=== PATIENT | female | born 1940 | race Caucasian/White ===

== ENCOUNTER 2021-11-13 12:52 | Outpatient (CLI) | payer MEDICARE, OTHER, SELFPAY ==
--- NOTE | 2021-11-13 13:00 | CRLHL7_ITS ---
For Patients: As a result of the Century Cures Act, medical imaging exams and procedure reports are released immediately into your electronic medical record. You may view this report before your referring provider. If you have questions, please contact your health care provider. HISTORY: Shoulder pain. Evaluate for glenoid cyst. TECHNIQUE: CT right shoulder without contrast. COMPARISON: Shoulder radiographs 11/05/2021. FINDINGS: Glenohumeral joint osteoarthritis with severe joint space narrowing, subarticular sclerosis, and marginal osteophytes. Mild to moderate subarticular cyst-like changes in the glenoid. Largest cyst-like focus measures 7 mm at the anterior glenoid. Depth of central glenoid bone stock is 20 mm. 10 degrees glenoid retroversion. Mild glenoid dysplasia. Glenohumeral joint chondrocalcinosis. Joint body in the biceps tendon sheath. No fracture. No marrow replacing process. Degenerative changes of the AC joint. Lateral downsloping of the acromion. No os acromial. Acromiohumeral interval measures 6 mm. Mild atrophy of the infraspinatus muscle. Rotator cuff muscle mass is otherwise maintained. No deltoid muscle atrophy. Subacromial-subdeltoid bursal fluid. Subpleural scarring in both lung apices. Few ground-glass and small nodular opacities in both lung apices. IMPRESSION: 1. Severe osteoarthritis of the glenohumeral joint. Mild to moderate subarticular cyst-like changes in the glenoid. 2. Mild atrophy of the infraspinatus muscle. Rotator cuff muscle mass is otherwise maintained. 3. Findings of bronchiolitis in both lung apices. Please note that all CT scans at this facility use dose modulation, iterative reconstruction, and/or weight-based dosing when appropriate to reduce radiation dose to as low as reasonably achievable. Dictated by Romel Rudd MD @ 11/14/2021 10:33:44 AM (Electronically Signed)
--- NOTE | 2021-11-13 13:45 | MR_ITS ---
[address] [address] Phone:?[phone] Fax:?[phone] Referring Physician Information: Ryan Heck M.D. [address] [place] [id number] Phone:?[phone] Fax:?[phone] Patient:Selene Mendoza D.O.B:?1940 Sex:?Female Phone:?[phone] [facility] MRN:?[id number] Exam Date:?11/13/2021 ? EXAM: MRI of the RIGHT SHOULDER, without contrast CLINICAL HISTORY: Right shoulder pain. Evaluate for rotator cuff tear. COMPARISONS: None available. TECHNICAL: MRI sequences of the right shoulder: Axials: PD, T2 Coronals: PD, STIR, T2 Sagittals: PD, T2 SEDATION: None CONTRAST: None FINDINGS: Bones: No fracture or destructive osseous lesion is seen. Coracoacromial arch: Acromion: No os acromiale. Type I-II acromion. Acromiohumeral space: The bony distance measures approximately 5 mm. Coracohumeral space: The bony distance is unremarkable. Acromioclavicular joint: No acute injury, arthropathy, or inferior hypertrophy. Coracoclavicular ligament: The coracoclavicular ligament is intact. Rotator cuff muscles/tendons: Supraspinatus: An approximately 2.0 cm in AP dimension irregular full-thickness tear of the supraspinatus tendon with approximately 2.7 cm of maximal proximal/tendon retraction best seen on coronal series 4 is suspected although it must be noted that evaluation is markedly compromised by marked patient motion artifact. No disproportionate atrophy of the supraspinatus muscle in the setting of mild to moderate diffuse muscular atrophy. Infraspinatus: The infraspinatus tendon appears predominantly intact although some ill-defined tearing of the anterior portion of the insertion is not excluded as evaluation is markedly compromised by marked patient motion artifact. No disproportionate muscular atrophy. Teres minor: The teres minor tendon and muscle are intact. Subscapularis: Approximately 1.0 cm craniocaudad dimension by 1.4 cm in transverse dimension split longitudinal intrasubstance/interstitial tear within the superior portion of the subscapularis tendon superimposed upon mild subscapularis tendinopathy. Labrum: Ill-defined tearing of the entire labrum. Proximal biceps tendon, long head and short heads: Mild medial subluxation of the proximal long head of the biceps tendon at the superior aspect of the bicipital groove is suspected although it must be noted that evaluation is compromised by marked motion artifact. There is an approximately 11 x 5 x 6 mm intra-articular body within the biceps tendon sheath. The short is intact. Glenohumeral joint: Moderate glenohumeral joint effusion and substantial synovitis. Ill-defined low signal foci within the glenohumeral joint likely reflect synovitis, and coexistent intra-articular chondral bodies are not excluded. Marked right glenohumeral joint osteoarthritic changes include diffuse full- thickness chondral loss over all portions of the humeral head and glenoid, extensive degenerative subchondral cystic changes throughout the right humeral head and glenoid, marked osteophytosis, ill-defined tearing of the entire labrum, and an approximately 11 x 5 x 6 mm intra-articular body within the biceps tendon sheath. No convincing evidence of capsular edema or thickening although evaluation is suboptimal because of lack of joint distention. Bursae: Subacromial/subdeltoid: The presence of fluid is not unexpected given suspected full-thickness rotator cuff tendon tear. Subcoracoid: No convincing subcoracoid bursal thickening/bursitis. IMPRESSION: 1. Marked right glenohumeral joint osteoarthritic changes include diffuse full- thickness chondral loss over all portions of the humeral head and glenoid, extensive degenerative subchondral cystic changes throughout the humeral head and glenoid, marked osteophytosis, ill-defined tearing of the entire labrum, and an approximately 11 x 5 x 6 mm intra-articular body within the biceps tendon sheath. 2. Approximately 1.0 x 1.4 cm split longitudinal intrasubstance/interstitial tear within the superior portion of the subscapularis tendon superimposed upon mild subscapularis tendinopathy. 3. Mild medial subluxation of the proximal long head of the biceps tendon at the superior aspect of the bicipital groove is suspected although it must be noted that evaluation is compromised by marked motion artifact. 4. The infraspinatus tendon appears predominantly intact although some ill- defined tearing of the anterior portion of the insertion is not excluded as evaluation is markedly compromised by marked patient motion artifact. 5. No disproportionate atrophy of the rotator cuff musculature in the setting of mild to moderate diffuse muscular atrophy. 6. Moderate glenohumeral joint effusion and substantial synovitis. Ill-defined low signal foci within the glenohumeral joint likely reflect synovitis, and coexistent intra-articular chondral bodies are not excluded. RCB Electronically signed on 11/14/2021 10:35:00 AM by Benji Lindsey M.D.
== END 2021-11-13 12:53 | disposition home or self-care (01) ==
PROVIDERS: PCP Family Medicine; Visit Provider Orthopaedic Surgery
DX: M25.511 Pain in right shoulder (principal); M19.011 Primary osteoarthritis, right shoulder; S46.911A Strain of unspecified muscle, fascia and tendon at shoulder and upper arm level, right arm, initial encounter; M25.411 Effusion, right shoulder
CPT/HCPCS: 73200; 73221

== ENCOUNTER 2022-02-05 08:54 | Day surgery (SDC) | payer MEDICARE, OTHER, SELFPAY ==
[2022-02-05] VITALS (21 sets, daily range): BP systolic 113–166; BP diastolic 68–95; PULSE 61–90; RESP 16–18; TEMP 35.4–37.1; O2SAT 92–99; BMI 27.1
[2022-02-05] MEDS: OXYCODONE (CR) 10 MG TAB.ER.12H PO (09:10)
[2022-02-05] MEDS: CELECOXIB 200 MG CAPSULE PO (09:10)
[2022-02-05] MEDS: ACETAMINOPHEN 500 MG TABLET 1000 MG PO ×2 (09:10→18:06)
[2022-02-05] MEDS: LACTATED RINGERS 1000 ML 1,000 ML 100 ML IV ×2 (10:00→13:19)
[2022-02-05] MEDS: fentaNYL 100 MCG/2 ML inj IVP (11:06)
[2022-02-05] MEDS: MIDAZOLAM HCL 1 MG/ML inj IVP (11:06)
--- NOTE | 2022-02-05 11:09 | P.NB_ITS ---
Nerve Block Nerve Block Time Seen by Provider: 11:09 Date Seen: 02/05/22 Type of block requested by surgeon for post-operative analgesia: supraclavicular Side: right Time out performed: Yes Verification of patient name: Yes Verification of date of : Yes Site marking: site marked Name of person performing procedure: García Rayn Continuous monitoring Was continuous monitoring of O2 sat, B/P, laboratory monitor, recorded every 15 minutes?: Yes Procedure Checklist: sterile prep, needles and gloves Ultrasound guided. Images saved: Yes Medications given in 5ml increments after negative aspiration: Ropivicaine %: 0.5 mL: 20 Decadron (mg): 10 Precedex (mcg): 15 Patient tolerated procedure well: Yes Block Charges Block Charge (with Pro Fee): Brachial Plexus Use of Ultrasound Machine for Block: Yes- US Guidance/pain block
--- NOTE | 2022-02-05 11:15 | SUR.PREOP ---
TIME?OUT:?1055 PT/RN/MDA?VERIFICATION?OF?SURGICAL?SITE,?PROCEDURE,?AND?CONSENT OBTAINED?PRIOR?TO?INVASIVE?PROCEDURE.
[2022-02-05] MEDS: TRANEXAMIC ACID 100 MG/ML INJ 1000 MG IV ×2 (11:50→13:25)
[2022-02-05] MEDS: CEFAZOLIN 2 GM INJ IVP (11:55)
--- NOTE | 2022-02-05 12:19 | W.ANESCHARGE ---
Anesthesia Charges Start Date/Time Anesthesia Start Date: 02/05/22 Anesthesia Start Time: 11:31 Stop Date/Time Anesthesia Stop Date: 02/05/22 Anesthesia Stop Time: 14:15 Summary Emergency: No Extremes of Age: Over 69-CPT [address]
--- NOTE | 2022-02-05 13:25 | CRLHL7_ITS ---
For Patients: As a result of the Cures Act, medical imaging exams and procedure reports are released immediately into your electronic medical record. You may view this report before your referring provider. If you have questions, please contact your health care provider. Indication: Postop reverse shoulder arthroplasty Technique: Two views right shoulder Findings/Impression: Hardware from a reverse right total shoulder arthroplasty is in satisfactory position. Bone alignment is normal. No sign of acute fracture. Postop changes are within normal limits. Dictated by Bud Bowman MD @ 02/06/2022 12:51:49 PM (Electronically Signed)
--- NOTE | 2022-02-05 13:27 | P.ORPRC_ITS ---
Procedure Note Date of procedure: 02/05/22 Procedure: PREOPERATIVE DIAGNOSIS: Right shoulder rotator cuff tear arthropathy POSTOPERATIVE DIAGNOSIS: Right shoulder rotator cuff tear arthropathy NAME OF OPERATION: Right upper extremity reverse shoulder arthroplasty SURGEON: Ryan Heck MD PLATE GLASS INSTALLER HELPER: Samreen Silva PA-C, NATHALIE Potter ANESTHESIA: General endotracheal ESTIMATED BLOOD LOSS: 100 mL COMPLICATIONS: None SPECIMENS: None DRAINS: None PREOPERATIVE ANTIBIOTICS: Ancef 1 grams IMPLANTS: 1. Tornier 25mm x 30mm baseplate 2. 36mm standard glenosphere 3. 6B humeral stem 4. Low eccentric +0 humeral tray 5. 36mm +6 polyethylene INDICATIONS: The patient is a 81-year-old with a longstanding history of severe, unrelenting right shoulder pain secondary to rotator cuff tear arthropathy. Despite appropriate nonoperative management, including activity modification, anti-inflammatories, omoc-ryg-bjcyxxf pain medication, physical therapy, and injections they continue to have pain and disability. Operative intervention was offered. The risks, benefits and expected outcomes were discussed in detail. These included but were not limited to: Infection, bleeding, injury to blood vessel or nerve, venous thromboembolism. All questions were answered to their satisfaction. Use of an technical services assistant was necessary throughout the case for patient positioning and safety, soft tissue retraction, and closure. PROCEDURE: General anesthesia was administered. The patient was placed in the lazy beach chair position on the operating room table. The right upper extremity was prepped and draped in the usual sterile fashion. A standard deltopectoral incision was made. Subcutaneous dissection was taken with electrocautery to the deltopectoral interval. The cephalic vein was mobilized, lateral branches were cauterized. The vein was taken medially with the pectoralis. A branch of the vein continued to bleed. Therefore, we ligated it with a 2-0 Vicryl suture. We bluntly entered the deltopectoral interval. We freed up the deltoid. The upper 1/3 of the insertion of the pectoralis was divided with cautery. The static retractor was placed. The clavipectoral fascia and CA ligament were divided. The circumflex vessels were controlled with electrocautery. The biceps was dissected out of the bicipital groove, was tagged with a #2 FiberWire suture and divided proximally. Two fiberWire sutures were placed in the subscapularis. The subscap was subperiosteally elevated off of the lesser tuberosity. The humeral head was delivered into the wound. The intramedullary humeral cutting guide was placed. We made the cut at the anatomic neck, in 30? of retroversion. Humeral sounds were used to assess the diameter of the canal. The broach was placed and had good rotational stability. The calcar reamer was used and the protective base plate cover was placed. Attention was then turned to the glenoid. Hohmann retractors were placed posteriorly. The labrum and biceps stump were sharply debrided. The origin of the inferior glenohumeral ligaments were subperiosteally released off of the glenoid. The drill guide was placed. The guide pin was placed in 0? of cephalic tilt. The reamer was used to bleeding bone. The central drill was used x2. The tap was used. The standard base plate was placed. This had excellent purchase. Locking screws were placed. The 36 standard glenosphere was impacted. The set screw was tightened. Attention then returned to the humerus. We placed a low eccentric standard base plate and standard poly. We reduced the shoulder and took it through a range of motion. It was found to be stable with appropriate soft tissue tension. Trial humeral components were removed. The biceps was tenodesed in the bicipital groove with drill holes and our previously placed FiberWire suture. We placed #2 FiberWire sutures in the lesser tuberosity for subsequent subscap repair. We assembled the humeral component on the back table. We placed it in the center of our subscapularis repair sutures and tapped it down to our humeral cut. This had excellent purchase. The shoulder was reduced and again was found to be stable with appropriate soft tissue tension. We did a 3 min dilute Betadine solution soak. We irrigated the wound with 3 L of normal saline via pulse lavage. We repaired the subscapularis to the lesser tuberosity with our previously placed FiberWire sutures. The deltopectoral interval was loosely reapproximated with an 0 Vicryl in an interrupted mnjvyu-[id number] fashion. Subcutaneous tissues were closed with the 2-0 Vicryl and a running 3-0 Monocryl suture. The skin was sealed with glue. A dry dressing and sling were applied. Sponge and needle counts were correct x2. The patient tolerated the procedure well, there were no apparent complications. They were awakened and extubated in the operating room, taken to the postanesthesia care unit in satisfactory condition. PLAN: The patient will be mobilized with physical therapy. The sling will be used for 6 weeks postoperatively. Active range of motion in forward flexion and abduction as tolerates. No external rotation greater than 0? for 6 weeks postoperatively. They will be discharged to home once medically appropriate.
--- NOTE | 2022-02-05 14:55 | SUR.PHASEI ---
50cc of LR infused in PACU 1.
--- NOTE | 2022-02-05 17:49 | PM.IMCN1 ---
Date of Consult Patient: Jeremy Patient Consult date: 02/05/22 Requesting Physician: Orthopedics Primary Care Provider: Leslie Pizano MD Consult Narrative Reason for consult: afib Narrative: Conchis Mendoza is a 81 year old female who underwent an elective right total shoulder arthroplasty today by Dr. Heck. Surgery went well and postoperatively she is feeling well with just a little bit of pain starting. Her right fingers are still somewhat numb. Yesterday both her ankles were a little bit swollen. She has never experienced anything like that before and today they are back to their usual. She has no other complaints. Her son is with her in the room today. He notes that there is plenty of help at home and she will have someone with her around the clock helping her when they take her home tomorrow. Review of Systems Status of ROS: Reports: 10 or more systems reviewed and unremarkable except as noted in History and below PFSH PFS Medical History (Updated 02/05/22 @ 18:00 by Terri Flores MD) Arthritis Atrial fibrillation Bacteremia due to Escherichia coli Bilateral lower extremity edema Coronary artery disease Dysphagia Escherichia coli urinary tract infection Gastritis with hemorrhage GERD (gastroesophageal reflux disease) Heart failure with reduced ejection fraction Herpes zoster Hypertension Hypothyroid Left knee pain Muscle pain Osteopenia Otalgia Ovarian cyst Polymyalgia rheumatica Sepsis Supratherapeutic international normalized ratio (INR) Swelling of face Vitamin D deficiency Surgical History (Updated 02/05/22 @ 18:00 by Terri Flores MD) H/O: hysterectomy (~1974) History of appendectomy (~1974) Hx of colonoscopy S/P foot surgery, right (09/30/12) S/P ORIF (open reduction internal fixation) fracture (07/07/96) 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) Family History Mother High blood pressure Sister Atrial fibrillation High blood pressure Brother Lung cancer Social History (Updated 02/05/22 @ 18:02 by Terri Flores MD) Narrative: Lives with son. Denies tobacco, EtOH, recreational drug use. DNR. Smoking Status: Never smoker Do you use any of these nicotine containing products: None Second hand tobacco smoke exposure: No How often do you have a drink containing alcohol: never AUDIT-C Alcohol total score: 0 Non-prescribed substance use: denies use Caffeine: Yes (coffee, 3 cups/day) Meds Home Medications and Allergies Home Medications Medication Instructions Recorded Confirmed Type acetaminophen 325 mg tablet 325 mg PO Q6H PRN 11/02/21 02/05/22 History carvedilol 12.5 mg tablet 12.5 mg PO BID 11/02/21 02/05/22 History digoxin 125 mcg (0.125 mg) tablet 125 mcg PO DAILY 11/02/21 02/05/22 History warfarin 2 mg tablet 2 mg PO DAILY PRN 11/02/21 02/05/22 History cyanocobalamin (vitamin B-12) 250 250 mcg PO QDAY 11/05/21 02/05/22 History mcg tablet (Vitamin B-12) pantoprazole 40 mg tablet,delayed 40 mg PO QDAY 11/05/21 02/05/22 History release levothyroxine 75 mcg tablet 75 mcg PO DAILY 02/05/22 02/05/22 History losartan 25 mg tablet 25 mg PO DAILY 02/05/22 02/05/22 History Allergies Allergy/AdvReac Type Severity Reaction Status Date / Time Contrast dye AdvReac Uncoded 11/19/21 13:57 Gadodiamide AdvReac Uncoded 11/19/21 13:57 HAZELNUTS AdvReac throat Uncoded 11/19/21 13:57 swelling Exam Narrative: Exam Narrative: General: No acute distress. Awake alert oriented x3. HEENT: Normocephalic atraumatic, pupils equally round and reactive to light and accommodation. Oropharynx clear. Mucous membranes are moist. No JVD. Cardiovascular: Irregularly irregular. No murmurs, gallops, or rubs. Chest: Right shoulder bandage is clean, dry, and intact. No increased work of breathing. Clear to auscultation bilaterally. No crackles or wheezes. Abdomen: Bowel sounds present. Soft, nondistended, nontender. No hepatosplenomegaly or masses. Extremities: Trace bilateral ankle edema, no cyanosis or clubbing. Skin: No jaundice, no pallor, no rashes. Neuro: Grossly intact. No focal deficits. Const: Vital Signs, click to edit/add: Vital Signs - 24 hr 02/05/22 09:15 02/05/22 11:00 02/05/22 11:25 Temperature 98.7 F Pulse Rate 86 61 77 Pulse Rate [Right Pulse Oximeter] Respiratory Rate 16 16 16 Blood Pressure 141/88 H 166/93 H 136/86 Blood Pressure [Le ft Arm] Pulse Oximetry 96 98 95 Oxygen Delivery Me thod Room Air Nasal Cannula Room Air Oxygen Flow Rate 3 02/05/22 14:12 02/05/22 14:15 02/05/22 14:20 Temperature 98.5 F Pulse Rate 72 70 84 Pulse Rate [Right Pulse Oximeter] Respiratory Rate 16 16 16 Blood Pressure 132/76 125/72 138/68 Blood Pressure [Le ft Arm] Pulse Oximetry 92 98 99 Oxygen Delivery Me thod Nasal Cannula Nasal Cannula Oxygen Flow Rate 4 2 2 02/05/22 14:25 02/05/22 14:30 02/05/22 14:35 Temperature Pulse Rate 74 86 67 Pulse Rate [Right Pulse Oximeter] Respiratory Rate 16 16 16 Blood Pressure 124/75 135/79 134/95 H Blood Pressure [Le ft Arm] Pulse Oximetry 97 94 96 Oxygen Delivery Me thod Room Air Room Air Room Air Oxygen Flow Rate 0 02/05/22 14:40 02/05/22 14:33 02/05/22 15:00 Temperature 98.2 F 95.7 F L 95.7 F L Pulse Rate 67 90 Pulse Rate [Right Pulse Oximeter] 81 Respiratory Rate 16 18 18 Blood Pressure 141/72 H Blood Pressure [Le ft Arm] 144/78 H 138/69 Pulse Oximetry 96 95 Oxygen Delivery Me thod Room Air Room Air Room Air Oxygen Flow Rate 0 02/05/22 15:15 02/05/22 15:30 02/05/22 15:45 Temperature 97.4 F L Pulse Rate Pulse Rate [Right Pulse Oximeter] 85 83 82 Respiratory Rate 18 18 18 Blood Pressure Blood Pressure [Le ft Arm] 138/80 134/84 136/83 Pulse Oximetry 95 95 95 Oxygen Delivery Me thod Room Air Room Air Room Air Oxygen Flow Rate 0 02/05/22 16:15 02/05/22 16:45 Temperature Pulse Rate Pulse Rate [Right Pulse Oximeter] 80 76 Respiratory Rate 18 18 Blood Pressure Blood Pressure [Le ft Arm] 133/77 132/81 Pulse Oximetry 93 92 Oxygen Delivery Me thod Room Air Room Air Oxygen Flow Rate 0 0 Assessment and Plan Assessment and plan (1) Status post reverse arthroplasty of right shoulder: Problem comment: Right upper extremity reverse shoulder arthroplasty Status: Acute (2) Osteoarthritis of right shoulder: Status: Acute (3) Rotator cuff tear, right: Status: Acute (4) Atrial fibrillation: Problem comment: Chronic. Anticoagulation with warfarin, goal INR 2-3. Status: Acute (5) Heart failure with reduced ejection fraction: Problem comment: NYHA class 1 Status: Acute (6) Polymyalgia rheumatica: Problem comment: Currently on prednisone 5 mg daily which was increased to that dose November 2021 due to persistent symptoms Status: Acute (7) Hypothyroid: Status: Chronic (8) Hypertension: Status: Chronic Plan This is an 81-year-old female who underwent an elective right total shoulder arthroplasty today and has been doing well postoperatively. He has a history of chronic atrial fibrillation for which she normally takes warfarin, but has been off of this for few days in anticipation of surgery. She also has a history of heart failure with reduced ejection fraction and had some minor lower extremity swelling yesterday which has since resolved. Her polymyalgia rheumatica symptoms are currently well controlled and she is on daily prednisone for that. Spoke with the patient and her son about the swelling in her legs as well as chronic prednisone use and the concern for impaired wound healing. She is doing well postoperatively. Anticipate she will be able to discharge home tomorrow from a medical standpoint. Thank you for the consult.
[2022-02-05] MEDS: CEFAZOLIN 1 GM in 0.9 % SODIUM CHLORIDE Mini-bag 100 ML IVPB (18:07)
[2022-02-05] MEDS: carvediloL 6.25 MG TABLET 12.5 MG PO (21:12)
--- NOTE | 2022-02-05 23:00 | PC.NURSE ---
End of Shift: Patient pleasant and cooperative. Afebrile. Denies pain. Dressing to right shoulder C/D/I. Able to move fingers, CMS intact. Tolerating regular diet with no nausea. Up to bathroom and chair with 1 assist and gait belt.
[2022-02-06] VITALS: BP 144/84; PULSE 78; RESP 18; TEMP 36.1; O2SAT 99
[2022-02-06] MEDS: ACETAMINOPHEN 500 MG TABLET 1000 MG PO ×2 (00:11→06:44)
[2022-02-06] MEDS: LACTATED RINGERS 1000 ML 1,000 ML 75 ML IV (01:57)
[2022-02-06] MEDS: CEFAZOLIN 1 GM in 0.9 % SODIUM CHLORIDE Mini-bag 100 ML IVPB (01:58)
[2022-02-06 03:00] VITALS: BP 115/66; PULSE 67; RESP 18; TEMP 36.1; O2SAT 97
[2022-02-06 06:39] LABS: Hematocrit 30.2 % (33.0-51.0); Hemoglobin* 9.4 gm/dL (12.0-16.0); Mean Corpuscular HGB Conc 31 gm/dL (32-36); Mean Corpuscular Hemoglobin 27 pg (26-34); Mean Corpuscular Volume 86 fL (80-100); Platelet Count* 246 K/uL (140-440); Red Blood Count 3.51 m/uL (4.00-5.20); White Blood Count* 10.81 K/uL (4.50-11.00)
[2022-02-06 06:40] LABS: Slide Review Reflex No
[2022-02-06] MEDS: LEVOTHYROXINE 75 MCG TABLET PO (06:45)
[2022-02-06] MEDS: OMEPRAZOLE 20 MG CAPSULE DR 40 MG PO (06:45)
[2022-02-06 06:58] LABS: Potassium* 3.9 mmol/L (3.6-5.1); Sodium* 139 mmol/L (135-149)
[2022-02-06 07:01] LABS: Blood Urea Nitrogen* 17 mg/dL (7-30); Creatinine* 0.8 mg/dL (0.5-1.5); Estimated Glomerular Filt Rate 74 ml/min
--- NOTE | 2022-02-06 07:51 | PC.NURSE ---
END OF SHIFT NOTE: PT IS PLEASANT AND COOPERATIVE WITH CARES. PT DENIES CP, SOB, N/V. ACTIVE ICE TO RIGHT SHOULDER. VSS ON RA; AFEBRILE. PT TO D/C HOME WITH SON.
[2022-02-06 08:05] VITALS: BP 142/74; PULSE 56; RESP 16; TEMP 36.8; O2SAT 100
[2022-02-06 10:20] VITALS: PULSE 80
[2022-02-06] MEDS: SENNOSIDES 1 TAB TABLET 2 TAB PO (10:20)
[2022-02-06] MEDS: carvediloL 6.25 MG TABLET 12.5 MG PO (10:20)
[2022-02-06] MEDS: DIGOXIN 125 MCG TABLET PO (10:20)
[2022-02-06] MEDS: LOSARTAN POTASSIUM 50 MG TABLET 25 MG PO (10:20)
[2022-02-06] MEDS: CYANOCOBALAMIN (VITAMIN B-12) 500 MCG TABLET PO (10:20)
[2022-02-06 11:00] VITALS: RESP 18
--- NOTE | 2022-02-06 14:19 | PC.NURSE ---
EVAL BY ORTHO PA, PT AND OT. THIRD DOSE OF IV CEFAZOLIN NOT INFUSED D/TO INFILTRATION ON POSTERIOR LEFT UPPER ARM. SITE DISCONTINUED BY NATALIA BARRETO AND WMP APPLIED. PT AND SON VERBALIZED UNDERSTANDING OF D/C DIAGNOSIS, HOME MEDS, PAIN MANAGEMENT PLAN, F/UP APPT AND SX TO REPORT URGENTLY TO PHYSICIAN. RN REVIEWED POST OP COMPLICATIONS AND SX OF INFECTION. DISCHARGED VIA W/C WITH PERSONAL BELONGINGS VIA HER SON [facility] [employer]SP[employer]ATION.
--- NOTE | 2022-02-06 15:53 | PM.ORPN ---
Subjective Subjective Time Seen by Provider: 07:30 Date Seen: 02/06/22 Principal diagnosis: Status post reverse total shoulder arthroplasty Interval history: Patient is comfortable this morning. She will be discharging to home. Her son will be assisting her at home. Ortho Exam Narrative Exam Narrative: Alert and oriented x3. Patient is in no acute distress. Converses without labored breathing. Hearing is grossly intact. Ambulates with a normal gait. Examination of the right upper extremity shows ecchymosis is present. Mild soft tissue edema about the right shoulder. Block is working well. She is able to flex and extend her wrist and her fingers. Right hand is warm. Capillary refill less than 2 seconds. Radial and ulnar pulses are 2+. Decreased sensation right upper extremity due to the block. Const Vital Signs, click to edit/add: Vital Signs - 24 hr 02/05/22 16:15 02/05/22 16:45 02/05/22 17:45 Temperature 98.0 F Pulse Rate Pulse Rate [Right Pulse Oximeter] 80 76 80 Pulse Rate [Right Radial] Respiratory Rate 18 18 18 Blood Pressure [Left Arm] 133/77 132/81 129/87 Pulse Oximetry 93 92 94 Oxygen Delivery Method Room Air Room Air Room Air Oxygen Flow Rate 0 0 02/05/22 18:45 02/05/22 20:45 02/05/22 19:45 Temperature 98.2 F Pulse Rate Pulse Rate [Right Pulse Oximeter] 81 77 78 Pulse Rate [Right Radial] Respiratory Rate 18 18 18 Blood Pressure [Left Arm] 119/72 123/76 113/79 Pulse Oximetry 98 99 99 Oxygen Delivery Method Room Air Room Air Room Air Oxygen Flow Rate 0 0 0 02/06/22 00:00 02/06/22 00:00 02/06/22 03:00 Temperature 96.9 F L 97.0 F L Pulse Rate Pulse Rate [Right Pulse Oximeter] 78 78 67 Pulse Rate [Right Radial] Respiratory Rate 18 18 18 Blood Pressure [Left Arm] 144/84 H 115/66 Pulse Oximetry 99 97 Oxygen Delivery Method Room Air Room Air Oxygen Flow Rate 0 0 02/06/22 10:20 02/06/22 08:05 02/06/22 11:00 Temperature 98.3 F Pulse Rate 80 Pulse Rate [Right Pulse Oximeter] Pulse Rate [Right Radial] 56 L Respiratory Rate 16 18 Blood Pressure [Left Arm] 142/74 H Pulse Oximetry 100 Oxygen Delivery Method Room Air Oxygen Flow Rate Assessment and Plan Assessment and plan (1) Status post reverse arthroplasty of right shoulder: Problem details: Right upper extremity reverse shoulder arthroplasty (Dr. Heck) Status: Acute Assessment and Plan: Plan for discharge is to home today with her son. Patient will wear the sling for 6 weeks post surgery. They can take it off for comfort and for exercises. Activity: no external rotation of the operative shoulder past 0? x 6 weeks. Forward flexion and abduction of the shoulder is allowed as tolerated. They will work on range of motion of the elbow, wrist, fingers once the block has wore off on the operative extremity. Patient will begin physical therapy for the operative shoulder next week. For discharge, oxycodone and Tylenol for pain. Do not drive while on narcotic pain medication. Drive only when safe to do so, when they have normal use/function of the upper extremity, this will likely take 6 weeks. Patient will minimize and discontinue the narcotic as soon as possible. Remove dressing in 1 week. Dressing is waterproof. May shower. Surgical glue covers the wound. Do not scrub the wound. Expect swelling and bruising about the shoulder and upper extremity. Use of ice/active ice without restriction. Notify Orthopedics his swelling is excessive. notify Orthopedics with any questions or concerns. [phone] Return to Orthopedic clinic next week for a wound check Return to clinic in [address] Heck. (2) Osteoarthritis of right shoulder: Status: Acute (3) Rotator cuff tear, right: Status: Acute (4) Atrial fibrillation: Problem details: Chronic. Anticoagulation with warfarin, goal INR 2-3. Status: Acute (5) Heart failure with reduced ejection fraction: Problem details: NYHA class 1 Status: Acute (6) Polymyalgia rheumatica: Problem details: Currently on prednisone 5 mg daily which was increased to that dose November 2021 due to persistent symptoms Status: Acute (7) Hypothyroid: Status: Chronic (8) Hypertension: Status: Chronic
== END 2022-02-06 13:05 | disposition home or self-care (01) ==
LOC: MEDSURG 02-06 10:57 → SS 02-06 13:27 → MEDSURG 02-06 13:28
PROVIDERS: PCP Family Medicine; Visit Provider Orthopaedic Surgery
PROC: 0RRJ0JZ Replacement of Right Shoulder Joint with Synthetic Substitute, Open Approach (ICD-10-PCS; CPT 23472; principal; 2022-02-05 10:45)
DX: M75.101 Unspecified rotator cuff tear or rupture of right shoulder, not specified as traumatic (principal); M19.011 Primary osteoarthritis, right shoulder; M25.511 Pain in right shoulder; I11.0 Hypertensive heart disease with heart failure; I50.20 Unspecified systolic (congestive) heart failure; I48.20 Chronic atrial fibrillation, unspecified; Z79.01 Long term (current) use of anticoagulants; M35.3 Polymyalgia rheumatica; E03.9 Hypothyroidism, unspecified; I25.10 Atherosclerotic heart disease of native coronary artery without angina pectoris; K21.9 Gastro-esophageal reflux disease without esophagitis; M85.80 Other specified disorders of bone density and structure, unspecified site
CPT/HCPCS: 23472; 01630; 36415; 64415; 73030; 76942; 82565; 84132; 84295; 84520; 85027; 97110; 97116; 97161; 97165; 97535; 99100; A9270; C1713; C1776; J0330; J0690; J1100; J2250; J2370; J2405; J2704; J2795; J3010; J7120; L3670

== ENCOUNTER 2022-06-11 15:15 | Outpatient (RCR) | payer MEDICARE, OTHER, SELFPAY ==
--- NOTE | 2022-02-19 12:30 | PT.OPEX ---
[facility] PT [facility] Eval Start: 02/19/22 10:02 Freq: Status: Active Protocol: Document 02/19/22 10:02 [facility] (Rec: 02/19/22 10:39 [facility] [id number]) E-signed By Samson Colon, PT Physical Therapy Outpatient Evaluation Insurance Information Insurance Name Medicare B Medical Diagnosis s/p reverse arthroplasty right shoulder Z96.611 Presence of right artificial shoulder joint Referring MD Bhargavi Ortiz PA-C Subjective Subjective Pt reports that she is not having any pain two weeks post -op. Pt is sleeping in a recliner for now because she rolls around a lot in bed. Pain Comments Only mild discomfort intermittently, usually after HEP Date of Last Physician Visit 02/14/22 Date of Surgery (If applicable) 02/05/22 Current Work Status Retired Preferred Name Marla Precautions Treatment Precautions/Contraindications AROM flexion and abduction by pt, as tolerated, at home No ER past 0 deg x 6 weeks post op Therapy Limitations/Systems Review Not Limited Objective Range of Motion Right shoulder: PROM/ AROM Flexion: 110 deg/ ~35 deg Abduction: 60 deg/ ~45 deg ( AAROM) IR (in 50 deg abd): 60 deg ER: per MD protocol, no ER past 0 deg allowed until 6 weeks post op Strength Right shoulder: Flexion and abduction 2+/5 Palpation Mild PT near incision area and right lateral lats/ subscapularis border Posture right shoulder guarded in immobilzer Assessment Assessment/Impression 81 year old female s/p right RTSR for advanced glenohumeral OA. Pain was unretractable pre op. Now, patient is nearly pain free and without use of pain meds. She experienced only mild discomfort during session today. Right shoulder ROM limited by tissue tension and new shoulder prosthetic. PLOF: active senior citizen. Played pickleball until 5 months ago. Patient to benefit from skilled PT to safely progress in ROM and, eventually, strengthening as protocol allows. Primary Functional Limitations Any activity involving her right UE including don/doff jacket/shirt, washing hair, lift/reach/carry. sleep ( currently in recliner) weight bearing through right UE Plan of Care Rehabilitation Potential Excellent Rehabilitation Potential Comments Self-motivated Physical Therapy Goals In 4 weeks, patient will: 1) Demo right shoulder AAROM for flexion to 130 deg/ abduction to 110 deg, IR to WNL for progression to next phase of rehab 2) Resume sleeping in bed comfortably In 10-12 weeks, patient will: 3) Don/doff davis/shirt I and painfree 4) Reach into overhead cabinet to retrieve object with good quality of movement and painfree 5) Resume driving painfree 6) Be I with HEP to further progress her rehab and recovery of optimal function Coordination/Communication With Referral Source Treatment Plan/Direct Interventions Joint Mobilization,Manual Therapy,Neuromuscular Re-ed, Self-Care/Home Management, Therapeutic Activities, Therapeutic Exercises Direct Interventions Clarification s/p RTSR protocol for rehab Comments Frequency/Duration 2x/week for 10-12 weeks Patient Will Be Discharged From Therapy Completion of LTG(s), Independent w/HEP, Independently Progressing Evaluation Billing Untimed Code Treatment Minutes 20 Complexity Low Certification Information Initial Certification Date 02/19/22 Ending Certification Date 05/21/22 Provider Signature Shows Agreement With POC & Medical Necessity Physician Signature & Date Requested Please Sign/Date Here Physician Comment/Change : Physician NPI Number #
== END 2022-06-11 15:59 | disposition home or self-care (01) ==
PROVIDERS: PCP Family Medicine; Visit Provider Physician Assistant Surgical
DX: M25.511 Pain in right shoulder (principal); M25.611 Stiffness of right shoulder, not elsewhere classified; M62.81 Muscle weakness (generalized); Z96.611 Presence of right artificial shoulder joint
CPT/HCPCS: 97110; 97140; 97161; 97530

== ENCOUNTER 2022-10-06 12:02 | Emergency (ER) | payer MEDICARE, OTHER, SELFPAY ==
[2022-10-06] VITALS (12 sets, daily range): BP systolic 137–160; BP diastolic 85–94; PULSE 71–90; RESP 18; TEMP 35.6; O2SAT 93–99; BMI 27.4
--- NOTE | 2022-10-06 12:31 | ED.GENADULT ---
HPI - General Adult General Time Seen by Provider: 12:31 Date Seen: 10/06/22 Chief complaint: Back Injury/Pain Stated complaint: back-spasms Time Seen by Provider: 10/06/22 12:03 Source: patient and RN notes reviewed Mode of arrival: ambulatory Limitations: no limitations History of Present Illness HPI narrative: This 82-year-old female is coming in with upper abdominal pain. She is feeling it throughout her upper abdomen but it sounds as if it started more right upper quadrant. She notes it right up under her ribcage, will feel it on both sides now. She felt like she was maybe needing to have a bowel movement but symptoms did not go away after she had 1. Denies any diarrhea. Has had no nausea or vomiting, no fevers. She has not had any increased burping. She states she ate greasy food Friday night at [employer], the next day the symptoms started. It is sound in like it is episodic in nature. She is wondering if this is her gallbladder, she tried eating more bland food, for instance, only had half a banana and some blueberries this morning. Pain is still coming and going, she denies any pain into her chest or any respiratory symptoms with this. Pain is not bothering her at the time I am seen her. She does tell me she is anticoagulated with Coumadin for chronic atrial fibrillation. Related Data Home Medications Medication Instructions Recorded Confirmed carvedilol 12.5 mg tablet 12.5 mg PO BID 11/02/21 07/24/22 digoxin 125 mcg (0.125 mg) tablet 125 mcg PO DAILY 11/02/21 07/24/22 cyanocobalamin (vitamin B-12) 250 250 mcg PO QDAY 11/05/21 07/24/22 mcg tablet (Vitamin B-12) levothyroxine 75 mcg tablet 75 mcg PO DAILY 02/05/22 07/24/22 losartan 25 mg tablet 25 mg PO DAILY 02/05/22 07/24/22 prednisone 5 mg tablet 5 mg PO DAILY 02/06/22 07/24/22 warfarin 4 mg tablet 4 - 6 mg PO DAILY 02/06/22 07/24/22 Allergies Allergy/AdvReac Type Severity Reaction Status Date / Time gadodiamide Allergy Verified 10/06/22 14:21 Contrast dye AdvReac Uncoded 10/06/22 14:21 [place] AdvReac throat Uncoded 10/06/22 14:21 swelling Review of Systems Status of ROS: Reports: 6 or more systems reviewed and unremarkable except as noted in History and below [facility] Medical History Bilateral lower extremity edema ?R60.0 - Localized edema (ICD-10) Heart failure with reduced ejection fraction ?I50.20 - Unspecified systolic (congestive) heart failure (ICD-10) Polymyalgia rheumatica ?M35.3 - Polymyalgia rheumatica (ICD-10) Gastritis with hemorrhage ?K29.71 - Gastritis, unspecified, with bleeding (ICD-10) Dysphagia ?R13.10 - Dysphagia, unspecified (ICD-10) Vitamin D deficiency ?E55.9 - Vitamin D deficiency, unspecified (ICD-10) Osteopenia ?M85.80 - Other specified disorders of bone density and structure, unspecified site (ICD-10) Swelling of face ?R22.0 - Localized swelling, mass and lump, head (ICD-10) Supratherapeutic international normalized ratio (INR) ?R79.1 - Abnormal coagulation profile (ICD-10) Sepsis ?A41.9 - Sepsis, unspecified organism (ICD-10) Otalgia ?H92.09 - Otalgia, unspecified ear (ICD-10) Muscle pain ?M79.10 - Myalgia, unspecified site (ICD-10) Left knee pain ?M25.562 - Pain in left knee (ICD-10) Herpes zoster ?B02.9 - Zoster without complications (ICD-10) Escherichia coli urinary tract infection ?N39.0 - Urinary tract infection, site not specified (ICD-10) ?B96.20 - Unspecified Escherichia coli [E. coli] as the cause of diseases classified elsewhere (ICD-10) Bacteremia due to Escherichia coli ?R78.81 - Bacteremia (ICD-10) ?B96.20 - Unspecified Escherichia coli [E. coli] as the cause of diseases classified elsewhere (ICD-10) Ovarian cyst ?N83.209 - Unspecified ovarian cyst, unspecified side (ICD-10) Coronary artery disease ?I25.10 - Atherosclerotic heart disease of [place] coronary artery without angina pectoris (ICD-10) Hypertension ?I10 - Essential (primary) hypertension (ICD-10) Arthritis ?M19.90 - Unspecified osteoarthritis, unspecified site (ICD-10) GERD (gastroesophageal reflux disease) ?K21.9 - Gastro-esophageal reflux disease without esophagitis (ICD-10) Atrial fibrillation ?I48.91 - Unspecified atrial fibrillation (ICD-10) Hypothyroid ?E03.9 - Hypothyroidism, unspecified (ICD-10) Surgical History Hx of colonoscopy ?Z98.890 - Other specified postprocedural states (ICD-10) 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) ?Z96.611 - Presence of right artificial shoulder joint (ICD-10) H/O: hysterectomy (~1974) ?Z90.710 - Acquired absence of both cervix and uterus (ICD-10) History of appendectomy (~1974) ?Z90.49 - Acquired absence of other specified parts of digestive tract (ICD-10) S/P ORIF (open reduction internal fixation) fracture (07/07/96) ?Z98.890 - Other specified postprocedural states (ICD-10) ?Z87.81 - Personal history of (healed) traumatic fracture (ICD-10) S/P foot surgery, right (09/30/12) ?Z98.890 - Other specified postprocedural states (ICD-10) Family History Mother High blood pressure Sister Atrial fibrillation High blood pressure Brother Lung cancer Social History Narrative: Lives with son. Denies tobacco, EtOH, recreational drug use. DNR. Smoking Status: Never smoker Do you use any of these nicotine containing products: None Second hand tobacco smoke exposure: No How often do you have a drink containing alcohol: never AUDIT-C Alcohol total score: 0 Non-prescribed substance use: denies use Caffeine: Yes (coffee, 3 cups/day) Exam Const: Vital Signs, click to edit/add: Vital Signs - 24 hr 10/06/22 12:26 10/06/22 14:06 10/06/22 14:07 Temperature 96.1 F L Pulse Rate 79 90 Pulse Rate [Right Pulse Oximeter] 87 Respiratory Rate 18 Blood Pressure 137/85 Blood Pressure [Ri ght Upper Arm] 160/94 H Pulse Oximetry 98 96 96 Oxygen Delivery Me thod Room Air 10/06/22 14:37 10/06/22 14:45 10/06/22 15:00 Temperature Pulse Rate 83 80 80 Pulse Rate [Right Pulse Oximeter] Respiratory Rate Blood Pressure Blood Pressure [Ri ght Upper Arm] Pulse Oximetry 96 97 97 Oxygen Delivery Me thod Marla is a very pleasant 82-year-old female sitting on the end of the bed, does not want to lie on the bed. Did ask her to lie down to evaluate her abdomen in she just does not feel comfortable doing this. She is alert, interactive, able to speak in complete sentences. Sclera clear, conjugate gaze. Face atraumatic. Neck is supple, no palpable masses. Lungs are clear, good air entry without any accessory muscle use, no wheezing or crackles. CV is sometimes regular but then do here irregularity to it, not fast, do not hear any significant murmur. Abdomen is evaluated the best I can as she is sitting upright. She has no CVA tenderness, no abdominal tenderness while sitting up, do not feel any masses again she is sitting up. She is certainly not tender on palpation of her abdomen, does not reproduce any pain. She did want to sit in the chair rather than sit on the edge of the bed, I did have to assist her moving over to get into the chair. Documenting provider has reviewed patient's vital signs: yes Course Course Hospital Course: Certainly gallbladder disease is etiology that is possible. Review of her records I believe I see that she has had an appendectomy in hysterectomy. At this time, patient is stable, does not require pain medicine. Will look at EKG and troponin just to ensure no underlying change with cardiac disease but it certainly sounds as if this is abdominal etiology. Will get right upper quadrant ultrasound as well as do a flat and upright to look at bowel character. Will get appropriate labs, check INR to see where her anticoagulation is at. May need to consider advanced imaging with CT if clinically indicated. Reevaluation(s) Time of Reevaluation #1: 14:05 Reevaluation #1: Reviewed with Marla that her gallbladder ultrasound was difficult to perform but overall not showing acute pathology on preliminary review by the robotics technologist. Her abdominal imaging however showing abnormal gas in the transverse colon, Radiology did call me. Labs that are back so far are not overtly concerning. We are proceeding with CT imaging. She notes she is comfortable at rest, movement seems to precipitate pain. She declines any need for pain management at this time. Time of Reevaluation #2: 16:29 Reevaluation #2: It is reviewed with patient and her son the CT findings, other seems to be stool in the proximal colon but no evidence of obstruction. There is nothing else to concerned for etiology for pain. Labs are reassuring. When I went in to talk to her, the son stated that she had been back from CT for an hour and a half. I did apologize and states that I was on my way in to see her but then we did have some sick patients come in. It is true that I was on my way to come in and see her but needed to address a sick new ambulance patient, actually had her CT report and hand when I was diverted to another patient room. Beyond telling more than this, could not due to patient confidentiality. In any event, I think we need to work on stooling here, need to watch for obstructive symptoms. This is on the right side of the colon and thus is not something that we will reach with enemas. The son does understand that and is going to get some magnesium citrate [id number]. We also discussed using MiraLax daily. She would like to try some prune juice which she certainly can try. We did discuss the chronic T12 compression fracture, consideration for that causing some back pain needs to be entertained if symptoms are not resolving with stool cleanout. Consultations Consultation #1: Just received phone call from the radiologist, initially he was going to read this x-ray out as negative but he feels there is a bit too much gas in the transverse colon which is likely nonspecific finding. Will likely proceed with CT imaging. Time: 13:51 Vital Signs Vital signs: Initial Vital Signs Temperature 96.1 F L 10/06/22 12:26 Temperature Source Temporal Artery Scan 10/06/22 12:26 Pulse Rate 87 10/06/22 12:26 Respiratory Rate 18 10/06/22 12:26 Blood Pressure 160/94 H 10/06/22 12:26 Blood Pressure Mean 116 H 10/06/22 12:26 Blood Pressure Position Sitting 10/06/22 12:26 Pulse Oximetry 98 10/06/22 12:26 Oxygen Delivery Method Room Air 10/06/22 12:26 Vital Signs Temperature 96.1 F L 10/06/22 12:26 Pulse Rate 87 10/06/22 12:26 Respiratory Rate 18 10/06/22 12:26 Blood Pressure 160/94 H 10/06/22 12:26 Pulse Oximetry 98 10/06/22 12:26 Oxygen Delivery Method Room Air 10/06/22 12:26 Temperature 96.1 F L 10/06/22 12:26 Pulse Rate 80 10/06/22 15:00 Respiratory Rate 18 10/06/22 12:26 Blood Pressure 137/85 10/06/22 14:06 Pulse Oximetry 97 10/06/22 15:00 Oxygen Delivery Method Room Air 10/06/22 12:26 Medical Decision Making Lab Data Lab results reviewed: Yes I reviewed the patient's lab results Labs: Lab Results 10/06/22 10/06/22 10/06/22 Range/Units 12:45 12:57 13:04 WBC 10.06 (4.50-11.00) K/uL RBC 4.50 (4.00-5.20) m/uL Hgb 11.5 L (12.0-16.0) gm/dL Hct 37.7 (33.0-51.0) % MCV 84 (80-100) fL MCH 26 (26-34) pg MCHC 31 L (32-36) gm/dL RDW Coeff of Chan 17.7 H (11.5-15.5) % Plt Count 309 (140-440) K/uL Neut % (Auto) 81.5 H (42.0-72.0) % Lymph % (Auto) 12.9 L (20-44) % [place] % (Auto) 4.4 (0.0-11.0) % Eos % (Auto) 0.9 (0.0-7.0) % Baso % (Auto) 0.1 (0.0-3.0) % Neut # (Auto) 8.20 H (1.7-7.0) K/uL Lymph # (Auto) 1.30 (0.90-2.90) K/uL [place] # (Auto) 0.40 (0.00-0.90) K/UL Eos # (Auto) 0.09 (0.00-0.50) K/uL Baso # (Auto) 0.01 (0.00-0.30) K/uL Abs Immat Gran (auto) 0.02 (0.00-0.30) K/uL Imm/Tot Granulo (auto) 0.2 % INR 3.09 H (0.91-1.10) Sodium 136 (135-149) mmol/L Potassium 4.5 (3.6-5.1) mmol/L Chloride 105 (96-114) mmol/L Carbon Dioxide 23 (20-32) mmol/L Anion Gap 8 (7-15) mEq/L BUN 11 (7-30) mg/dL Creatinine 0.7 (0.5-1.5) mg/dL Estimated Creat Clear 32.17 Estimated GFR 86 ml/min Glucose 122 H (60-115) mg/dL Lactate 1.9 (0.5-1.9) mmol/L Calcium 8.7 (8.4-10.6) mg/dL Total Bilirubin 0.8 (0.1-1.5) mg/dL Direct Bilirubin 0.0 (0.0-0.5) mg/dL AST 31 (12-35) U/L ALT 24 (4-35) U/L Alkaline Phosphatase 90 (40-150) U/L C-Reactive Protein 2.8 H (0.5-1.0) mg/dL Total Protein 7.1 (6.0-8.3) g/dL Albumin 4.1 (3.3-5.0) g/dL Amylase 76 (18-89) U/L Lab Acknowledgement Test Added POC Troponin I 0.01 (0.01-0.04) ng/ml 10/06/22 Range/Units 13:26 WBC (4.50-11.00) K/uL RBC (4.00-5.20) m/uL Hgb (12.0-16.0) gm/dL Hct (33.0-51.0) % MCV (80-100) fL MCH (26-34) pg MCHC (32-36) gm/dL RDW Coeff of Chan (11.5-15.5) % Plt Count (140-440) K/uL Neut % (Auto) (42.0-72.0) % Lymph % (Auto) (20-44) % [place] % (Auto) (0.0-11.0) % Eos % (Auto) (0.0-7.0) % Baso % (Auto) (0.0-3.0) % Neut # (Auto) (1.7-7.0) K/uL Lymph # (Auto) (0.90-2.90) K/uL [place] # (Auto) (0.00-0.90) K/UL Eos # (Auto) (0.00-0.50) K/uL Baso # (Auto) (0.00-0.30) K/uL Abs Immat Gran (auto) (0.00-0.30) K/uL Imm/Tot Granulo (auto) % INR (0.91-1.10) Sodium (135-149) mmol/L Potassium (3.6-5.1) mmol/L Chloride (96-114) mmol/L Carbon Dioxide (20-32) mmol/L Anion Gap (7-15) mEq/L BUN (7-30) mg/dL Creatinine (0.5-1.5) mg/dL Estimated Creat Clear Estimated GFR ml/min Glucose (60-115) mg/dL Lactate (0.5-1.9) mmol/L Calcium (8.4-10.6) mg/dL Total Bilirubin (0.1-1.5) mg/dL Direct Bilirubin (0.0-0.5) mg/dL AST (12-35) U/L ALT (4-35) U/L Alkaline Phosphatase (40-150) U/L C-Reactive Protein (0.5-1.0) mg/dL Total Protein (6.0-8.3) g/dL Albumin (3.3-5.0) g/dL Amylase (18-89) U/L Lab Acknowledgement Test Added POC Troponin I (0.01-0.04) ng/ml Imaging Data Abdominal x-ray: Attestation: I have reviewed the pertinent imaging results. Radiologist's impression: Patient: JOSE RAMON DELAND Facility:?[facility] Patient ID:?[id number] Site Patient ID:?[id number]. Site :?[id number] Study:?XRay Abdomen/Pelvis 2V-10/06/2022 1:20:31 PM Ordering Physician:Ralph Rae Final Report: INDICATION: Upper abdominal pain. TECHNIQUE: Flat and upright. COMPARISON: None. FINDINGS: Transverse colon distended with gas. Moderate amount of stool in the right colon. Relatively little gas in the left and rectosigmoid colon. No obvious abnormal small bowel gas. No free air or significant abnormal calcification. Phleboliths noted in the pelvis. CONCLUSION: Nonspecific gas pattern. Dictated by Matt Nixon MD @ 10/06/2022 1:52:07 PM (Electronic Signature) US - abdomen: Attestation: I have reviewed the pertinent imaging results. Radiologist's impression: Patient: [facility] Facility:?[facility] Patient ID:?[id number] Site Patient ID:?[id number]. Site :?[id number] Study:?US Abdomen RUQ-10/06/2022 2:17:20 PM Ordering Physician:?Rajiv Rae Final Report: INDICATION: Right upper quadrant abdomen pain. TECHNIQUE: Ultrasound abdomen limited. Sonographic images of the right upper quadrant were obtained using girard-scale and color Doppler images. COMPARISON: None. FINDINGS: Liver: Normal in size and echotexture. No suspicious masses. No intrahepatic biliary dilatation. Gallbladder: Limited study secondary to artifact from air-filled colon. Common bile duct: 4 mm. Pancreas: Obscured. Right kidney: Normal in size. Normal echotexture and cortex. No suspicious masses, stones, or hydronephrosis. Vasculature: Proximal abdominal aorta and IVC are unremarkable. IMPRESSION: Limited study secondary to artifact from air filled colon. No definite cholelithiasis, cholecystitis, or biliary obstruction on this limited study. Please refer to same-day CT abdomen/pelvis for further evaluation. Dictated by Venkatesh Campos MD @ 10/06/2022 3:39:58 PM (Electronic Signature) CT scan - abdomen: Attestation: I have reviewed the pertinent imaging results. Radiologist's impression: Patient: [facility] Facility:?[facility] Patient ID:?[id number] Site Patient ID:?[id number]. Site :?[id number] Study:?CT Abdomen/Pelvis W/ 71CC [id number]-337-4/27/2023 2:29:09 PM Ordering Physician:Ralph Rae Final Report: INDICATION: Abdominal pain, abnormal gas pattern TECHNIQUE: CT abdomen and pelvis acquired with 71 mL Isovue 370 IV contrast. COMPARISON: Abdominal radiographs earlier today FINDINGS: Lower chest: Cardiomegaly, otherwise, unremarkable. Liver: Multiple, round low-attenuation areas within both lobes, compatible with cysts, largest anteriorly, near inter hepatic fissure, measuring about 4 cm diameter, otherwise unremarkable. Spleen: Unremarkable. Pancreas: Unremarkable. Gallbladder and bile ducts: Unremarkable. Kidneys: Unremarkable. Adrenal glands: Unremarkable. GI tract: Stomach and small bowel unremarkable moderate amounts of stool in the redundant colon which is otherwise unremarkable. Appendix is not seen. Vascular structures: Negative. No sign of aneurysm. Lymph nodes: Unremarkable. Miscellaneous: Unremarkable. No free air or significant free fluid. Pelvic Organs: Hysterectomy. No evidence of adnexal mass/free fluid. Bones: Moderate-severe compression deformity of T12 appears chronic, but clinical correlation recommended. Multilevel degenerative disc disease and facet degenerative hypertrophic change of lumbar spine IMPRESSION: 1. Moderate amounts of stool continuous in the distended proximal colon, without other/specific abnormality. 2. Multiple hepatic cysts. 3. Cardiomegaly. 4. Chronic appearing moderate to severe compression deformity T12. Multilevel lumbar spine degenerative change. Otherwise, unremarkable CT of the abdomen and pelvis. Please note that all CT scans at this facility use dose modulation, iterative reconstruction, and/or weight-based dosing when appropriate to reduce radiation dose to as low as reasonably achievable. Dictated by Avi Swan MD @ 10/06/2022 3:16:59 PM (Electronic Signature) ECG Data Attestation: I personally reviewed and interpreted this ECG as follows: (Atrial fibrillation, 83 beats per minute. PAC seen. Nonspecific ST segment changes in lateral leads, does seem to be some slight widening of the QRS. Note patient is on digoxin. QT corrected 406 milliseconds.) Prior ECG tracings: not available for review Critical Care Time Critical Care Time Critical Care Time: No Discharge Plan Discharge Clinical Impression: Acute constipation Patient Disposition: Home, Self-Care Condition: Stable Instructions: Constipation (ED), High Fiber Diet (ED) Additional Instructions: Baseline need to drink adequate fluids and have adequate fiber in your diet for healthy bowels. May need to use MiraLax 17 g daily and adjust does to have a formed but soft bowel movement daily. Can use magnesium citrate as well as prune juice to help try to clean out her system. If your noting there was more central back pain in the lower thoracic area, this could be the T12 compression fracture that is maybe bothering you which is chronic on the imaging. These can become ?aggravated? and bother people, seek re-evaluation if you think it might be this. Otherwise, recommend Tylenol for discomfort, follow bottle directions for dosing. If at any point you develop increasing abdominal pain and have fever or vomiting with that, do need to seek re-evaluation. Activity Level: Activity as Tolerated Prescriptions: No Action digoxin 125 mcg (0.125 mg) tablet 125 mcg PO DAILY carvedilol 12.5 mg tablet 12.5 mg PO BID Rx Instructions: hold if sbp <105 or hr <65 cyanocobalamin (vitamin B-12) [Vitamin B-12] 250 mcg tablet 250 mcg PO QDAY losartan 25 mg tablet 25 mg PO DAILY levothyroxine 75 mcg tablet 75 mcg PO DAILY prednisone 5 mg tablet 5 mg PO DAILY warfarin 4 mg tablet 4 - 6 mg PO DAILY Rx Instructions: 4 MG , 6 MG MO,WE,FR,SA Follow Up/Referrals: Leslie Pizano MD [Primary Care Provider] - Stand Alone Forms: [employer] Info Instructions
--- NOTE | 2022-10-06 12:44 | CRLHL7_ITS ---
For Patients: As a result of the Century Cures Act, medical imaging exams and procedure reports are released immediately into your electronic medical record. You may view this report before your referring provider. If you have questions, please contact your health care provider. INDICATION: Right upper quadrant abdomen pain. TECHNIQUE: Ultrasound abdomen limited. Sonographic images of the right upper quadrant were obtained using girard-scale and color Doppler images. COMPARISON: None. FINDINGS: Liver: Normal in size and echotexture. No suspicious masses. No intrahepatic biliary dilatation. Gallbladder: Limited study secondary to artifact from air-filled colon. Common bile duct: 4 mm. Pancreas: Obscured. Right kidney: Normal in size. Normal echotexture and cortex. No suspicious masses, stones, or hydronephrosis. Vasculature: Proximal abdominal aorta and IVC are unremarkable. IMPRESSION: Limited study secondary to artifact from air filled colon. No definite cholelithiasis, cholecystitis, or biliary obstruction on this limited study. Please refer to same-day CT abdomen/pelvis for further evaluation. Dictated by Venkatesh Campos MD @ 10/06/2022 3:39:58 PM (Electronically Signed)
--- NOTE | 2022-10-06 12:45 | CRLHL7_ITS ---
For Patients: As a result of the Century Cures Act, medical imaging exams and procedure reports are released immediately into your electronic medical record. You may view this report before your referring provider. If you have questions, please contact your health care provider. INDICATION: Upper abdominal pain. TECHNIQUE: Flat and upright. COMPARISON: None. FINDINGS: Transverse colon distended with gas. Moderate amount of stool in the right colon. Relatively little gas in the left and rectosigmoid colon. No obvious abnormal small bowel gas. No free air or significant abnormal calcification. Phleboliths noted in the pelvis. CONCLUSION: Nonspecific gas pattern. Dictated by Matt Nixon MD @ 10/06/2022 1:52:07 PM (Electronically Signed)
[2022-10-06 13:16] LABS: Basophils Absolute Auto 0.01 K/uL (0.00-0.30); Basophils Percent Auto 0.1 % (0.0-3.0); Eosinophils Absolute Auto 0.09 K/uL (0.00-0.50); Eosinophils Percent Auto 0.9 % (0.0-7.0); Hematocrit 37.7 % (33.0-51.0); Hemoglobin* 11.5 gm/dL (12.0-16.0); Immature Granulocytes Abs Auto 0.02 K/uL (0.00-0.30); Immature Granulocytes Pct Auto 0.2 %; Lymphocytes Percent Auto 12.9 % (20-44); Mean Corpuscular HGB Conc 31 gm/dL (32-36); Mean Corpuscular Hemoglobin 26 pg (26-34); Mean Corpuscular Volume 84 fL (80-100); Monocytes Percent Auto 4.4 % (0.0-11.0); Neutrophils Percent Auto 81.5 % (42.0-72.0); Platelet Count* 309 K/uL (140-440); RDW Coefficient of Variation % 17.7 % (11.5-15.5); White Blood Count* 10.06 K/uL (4.50-11.00)
[2022-10-06 13:22] LABS: Slide Review Reflex No
[2022-10-06 13:32] LABS: Lactate* 1.9 mmol/L (0.5-1.9)
[2022-10-06 13:40] LABS: INR 3.09 (0.91-1.10); Prothrombin Time 33.4 Seconds
[2022-10-06 13:46] LABS: Albumin* 4.1 g/dL (3.3-5.0); Chloride* 105 mmol/L (96-114); Sodium* 136 mmol/L (135-149)
[2022-10-06 13:47] LABS: Potassium* 4.5 mmol/L (3.6-5.1)
[2022-10-06 13:48] LABS: Amylase* 76 U/L (18-89)
[2022-10-06 13:49] LABS: Alkaline Phosphatase* 90 U/L (40-150); Anion Gap 8 mEq/L (7-15); Aspartate Amino Transferase* 31 U/L (12-35); Bilirubin Total* 0.8 mg/dL (0.1-1.5); Blood Urea Nitrogen* 11 mg/dL (7-30); Carbon Dioxide* 23 mmol/L (20-32); Creatinine* 0.7 mg/dL (0.5-1.5); Est. Creatinine Clearance* 32.17; Estimated Glomerular Filt Rate 86 ml/min; Glucose* 122 mg/dL (60-115); Total Protein* 7.1 g/dL (6.0-8.3)
[2022-10-06 13:50] LABS: Alanine Aminotransferase* 24 U/L (4-35); Calcium* 8.7 mg/dL (8.4-10.6)
[2022-10-06 13:52] LABS: C Reactive Protein* 2.8 mg/dL (0.5-1.0)
--- NOTE | 2022-10-06 14:00 | CRLHL7_ITS ---
For Patients: As a result of the Century Cures Act, medical imaging exams and procedure reports are released immediately into your electronic medical record. You may view this report before your referring provider. If you have questions, please contact your health care provider. INDICATION: Abdominal pain, abnormal gas pattern TECHNIQUE: CT abdomen and pelvis acquired with 71 mL Isovue 370 IV contrast. COMPARISON: Abdominal radiographs earlier today FINDINGS: Lower chest: Cardiomegaly, otherwise, unremarkable. Liver: Multiple, round low-attenuation areas within both lobes, compatible with cysts, largest anteriorly, near inter hepatic fissure, measuring about 4 cm diameter, otherwise unremarkable. Spleen: Unremarkable. Pancreas: Unremarkable. Gallbladder and bile ducts: Unremarkable. Kidneys: Unremarkable. Adrenal glands: Unremarkable. GI tract: Stomach and small bowel unremarkable moderate amounts of stool in the redundant colon which is otherwise unremarkable. Appendix is not seen. Vascular structures: Negative. No sign of aneurysm. Lymph nodes: Unremarkable. Miscellaneous: Unremarkable. No free air or significant free fluid. Pelvic Organs: Hysterectomy. No evidence of adnexal mass/free fluid. Bones: Moderate-severe compression deformity of T12 appears chronic, but clinical correlation recommended. Multilevel degenerative disc disease and facet degenerative hypertrophic change of lumbar spine IMPRESSION: 1. Moderate amounts of stool continuous in the distended proximal colon, without other/specific abnormality. 2. Multiple hepatic cysts. 3. Cardiomegaly. 4. Chronic appearing moderate to severe compression deformity T12. Multilevel lumbar spine degenerative change. Otherwise, unremarkable CT of the abdomen and pelvis. Please note that all CT scans at this facility use dose modulation, iterative reconstruction, and/or weight-based dosing when appropriate to reduce radiation dose to as low as reasonably achievable. Dictated by Avi Swan MD @ 10/06/2022 3:16:59 PM (Electronically Signed)
[2022-10-06 14:41] LABS: Troponin, Point-of-Care* 0.01 ng/ml (0.01-0.04)
== END 2022-10-06 16:43 | disposition home or self-care (01) ==
PROVIDERS: Emergency Provider Family Medicine; PCP Family Medicine
DX: K59.00 Constipation, unspecified (principal)
CPT/HCPCS: 36415; 74019; 74177; 76705; 80053; 82150; 82248; 83605; 83690; 84484; 85025; 85610; 86140; 93005; 94761; 99284; 99285; Q9967

== ENCOUNTER 2022-11-18 07:32 | Outpatient (CLI) | payer MEDICARE, OTHER, SELFPAY ==
--- NOTE | 2022-11-18 09:45 | W.ANESCHARGE ---
Anesthesia Charges Start Date/Time Anesthesia Start Date: 11/18/22 Anesthesia Start Time: 08:40 Stop Date/Time Anesthesia Stop Date: 11/18/22 Anesthesia Stop Time: 09:42 Summary Extremes of Age - Over 70 or under 1: [employer]
--- NOTE | 2022-11-18 10:40 | W.ANESCHARGE ---
Anesthesia Charges Start Date/Time Anesthesia Start Date: 11/18/22 Anesthesia Start Time: 08:40 Stop Date/Time Anesthesia Stop Date: 11/18/22 Anesthesia Stop Time: 09:42 Summary Extremes of Age - Over 70 or under 1: MDA
== END 2022-11-18 07:33 | disposition home or self-care (01) ==
LOC: OP CLINIC 07:33
PROVIDERS: PCP Family Medicine; Visit Provider Internal Medicine Gastroenterology
DX: D50.9 Iron deficiency anemia, unspecified (principal); K44.9 Diaphragmatic hernia without obstruction or gangrene; K31.89 Other diseases of stomach and duodenum; R10.13 Epigastric pain; K64.5 Perianal venous thrombosis; K63.5 Polyp of colon; K62.1 Rectal polyp
CPT/HCPCS: 43239; 45381; 45385; 813; 88305; 99100; J2704

== ENCOUNTER 2024-09-10 17:34 | Emergency (ER) | payer MEDICARE, SELFPAY ==
--- OUTSIDE RECORDS SUMMARY | 2024-09-10 17:37 | XMS_ITS | Clinical Summary ---
Author Organization [employer] [facility] [employer] [facility] Address [address] [place] [address] Care Team Providers Care Preconstruction Manager Name Role Phone Anna Lyn MD Unavailable + Balaji Marley MD Unavailable [phone] Leslie Pizano MD Primary Care Provide r Allergies Active Allergy Reactions Criticality Noted Date Comments Diatrizoate Allergen *Unknown 10/06/2022 Gadodiamide *Unknown 10/06/2022 Iodinated Contrast Media Hives 11/11/2006 Tree Nut Throat Swelling/Closing High 10/06/2022 Hazelnuts Medications Walker - 4 wheelsIndication s:Closed compression fracture of thoracic vertebra, sequela,PMR (polymyalgia rheumatica) (HC) For home use. Length of need: 99 WALKER 4 WHEELS WITH SEAT 1 Device 01/01/20 18 Active acetaminophen (TYLENOL) 500 mg capsuleIndicatio ns:Generalized pain Take 1 capsule by mouth every 6 hours if needed. Max acetaminophen dose: 4000mg in 24 hrs. 0 01/05/20 19 Active vit C,P-Oo-fnksu-lut ein-zeaxan (PreserVision AREDS-2) capsule Take 1 Capsule by mouth once daily. 0 04/28/19 22 Active fluticasone (50 mcg per actuation) nasal solution (FLONASE) Inhale 1 [place] into affected nostril(s) once daily if needed. 07/05/19 22 Active carvediloL (COREG) 12.5 mg tabletIndication s:NYHA class 1 heart failure with reduced ejection fraction (HC) Take 1 Tablet (12.5 mg) by mouth two times daily. 180 Tablet 3 12/16/19 24 Active omeprazole (PRILOSEC) 20 mg Delayed-Release capsuleIndicatio ns:Anemia of unknown etiology Take 1 Capsule (20 mg) by mouth two times daily before meals. 180 Capsule 3 12/16/19 24 Active levothyroxine (SYNTHROID) 88 mcg tabletIndication s:Hypothyroidism , unspecified type Take 1 Tablet (88 mcg) by mouth before breakfast. 90 Tablet 2 01/16/20 24 Active digoxin (LANOXIN) 125 mcg (0.125 mg) tabletIndication s:Chronic atrial fibrillation (HC) Take 1 Tablet (125 mcg) by mouth once daily. 90 Tablet 2 01/29/20 24 Active ketoconazole 2 % creamIndications :Intertrigo Apply topically to affected area(s) two times daily. 60 g 2 05/21/19 25 Active clobetasol 0.05 % ointmentIndicati ons:Lichen sclerosus Apply topically to affected area(s) two times daily. 60 g 5 06/19/19 25 Active losartan 50 mg tabletIndication s:Hypertension, unspecified type Take 1 Tablet (50 mg) by mouth once daily. Further refills at your appt on 09/21/24 90 Tablet 07/07/19 25 Active cyanocobalamin (Vitamin B-12) 500 mcg tablet Take by mouth once daily. 07/09/19 25 Active warfarin 4 mg tabletIndication s:Chronic atrial fibrillation (HC),Anticoagula tion monitoring, INR range 2-3 Take by mouth 4 mg (4 mg x 1) every Fri; 6 mg (4 mg x 1.5) all other days in the evening OR as directed 07/23/19 25 Active predniSONE 5 mg tabletIndication s:PMR (polymyalgia rheumatica) (HC) TAKE 1 TABLET(5 MG) BY MOUTH EVERY DAY WITH A MEAL 90 Tablet 3 08/05/19 25 Active Active Problems Problem Noted Date Diagnosed Date Anticoagulation monitoring, INR range 2-3 2023 Colon polyp 11/20/2022 Overview (11/20/2022): Colonoscopy 11/2022 3-SSA, large bleeding hemorrhoids, repeat in 5 years depending upon overall health Bilateral lower extremity edema 07/15/2017 Leg wound, left, subsequent encounter 07/01/2017 NYHA class 1 heart failure with reduced ejection fraction 07/11/2016 Mild chronic anemia 07/11/2016 Gastritis 08/23/2015 PMR (polymyalgia rheumatica) 08/09/2015 Chronic atrial fibrillation 05/19/2013 Dysphagia, unspecified(787.20) 08/08/2011 Overview (08/08/2011): EGD 07/2011 normal Routine general medical exam ination at a health care facility 04/07/2009 Overview (04/07/2009): Colonoscopy 2008. Recheck 10 years. Vitamin D deficiency 04/07/2009 Osteopenia 01/11/2008 Overview (07/31/2012): dexa 01/2008. 05/2010. Could consider medications. See letter. Recheck 2012. ] Mary Oneill M.D. 07/31/2012 3:29 PM lichen sclerosis 11/11/2006 Unspecified essential hypertension 10/16/2006 Unspecified hypothyroidism 10/16/2006 Resolved Problems Problem Noted Date Diagnosed Date Resolved Date Acute gastritis with hemorrhage 07/14/2015 08/23/2015 Overview (07/14/2015): EGD 07/2015 mild gastritis with trace hemorrhage, try ranitidine 150 mg b.i.d. Anticoagulation monitoring, INR range 2-3 (Aim goal 2.0-2.5) 06/14/2013 01/15/2024 Anticoagulation goal of INR 2 to 3 05/20/2013 06/14/2013 Encounters Date Type Department Care Team Description 09/02/2024 12:45 PM CDT Orders Only [facility] [address] [place] [address] [place] <No scans attached> 09/02/2024 Anticoagulation (warfarin) [facility] [address] [place] [address] Nurse, Angelique Anticoag Anticoagulation 09/02/2024 Travel 08/05/2024 1:30 PM CDT Orders Only [facility] [address] [place] [place] [address] [place] Lab 08/05/2024 Anticoagulation (warfarin) [facility] [address] [place] [address] Nurse, Angelique Anticoag Anticoagulation 08/05/2024 Travel 08/05/[address] [address] Leslie Pizano MD Anticoagulation (OPA- PREDNISONE 5 MG TABLET) 08/04/[address] [address] Leslie Pizano MD Refill Request (Prednisone) 07/22/2024 10:30 AM CDT Orders Only [address] [address] [place] Lab 07/22/2024 Anticoagulation (warfarin) [facility] [address] [place] [address] 1[place] [facility] [facility] Anticoagulation 07/22/2024 Travel 07/15/2024 Telephone [facility] [address] [place] [address] Leslie Pizano MD Anticoagulation (Annual re-enrollment /) 07/08/2024 2:40 PM CDT Office Visit [address] [address] Leslie Pizano MD Results (Discuss recent labs/Still has the achy heaviness under ribs/A little bit of a cold last week.) 07/08/2024 Travel 07/03/2024 Refill [facility] [address] [place] [id number] Bud Levy MD Refill Request (Losartan) 06/30/2024 Telephone [facility] [address] [place] [address] Leslie Pizano MD Follow Up 06/25/2024 11:00 AM CDT Orders Only [facility] [address] [place] [address] Lab, [place] Lab 06/25/2024 Anticoagulation (warfarin) [facility] [address] [place] [address] 1, [place] [facility] [facility] Anticoagulation 06/25/2024 Travel 06/18/2024 11:45 AM CDT Office Visit [facility] [address] [place] [address] Leslie Pizano MD Results (Review US results, nothing that explains her discomfort/Family has concerns with diet, [id number] told her she had the same symptoms and is fructose intolerant. Posture, feels it pulls her forward when walking. Got out of breath just walking into the clinic./See medical message from daughter./Intertrigo, Ketoconazole 2 % cream used under breasts and it went away. Now has itching lower abdominal folds. //) 06/17/2024 Travel 06/10/2024 11:45 AM CDT Orders Only [facility] [address] [place] [address] Lab[place] Lab 06/10/2024 Telephone [facility] [address] [place] [address] Leslie Pizano MD Anticoagulation (OPA - Ketoconazole) 06/10/2024 Anticoagulation (warfarin) [facility] [address] [place] [address] 1, [place] [facility] Anticoagulation 06/10/2024 Telephone [facility] [address] [place] [address] Leslie Pizano MD Results 06/10/2024 Travel from Last 3 Months Immunizations Immunization Administration Dates Next Due AMB Influenza, IIV3 (Age >=3 years)(Flu Clinic Only) 12/11/2010 Amb Influenza, Inactivated A IIV4 (Age 65+ Years) Preserv Free 11/30/2019 COVID-19 vaccine (Moderna 100mcg/0.5mL) PF, MDV 06/01/2021,04/01/2020,03/11/2020 COVID-19 vaccine (Moderna Florentin blair 50mcg/0.25mL) PF, MDV 11/23/2020 COVID-19 vaccine (Pfizer-Bio NTech 30mcg/0.3mL) PF, MDV 11/23/2020,04/01/2020,03/11/2020 Influenza A (H1N1), Inactiva vicki (Age >=3 Years) 02/22/2009 Influenza, High-dose Inactivated 019,11/25/2016,12/13/2015,12/16,10/28/2013 Influenza, High-dose Quadriv alent Inactivated 11/28/2022,11/30/2021,11/09/2020 Influenza, IIV3 (Age >=3 years) 01/17/2009,01/10,12/25/2002 Influenza, IIV4 02/22/2009 Influenza, IIV4 (=>6mos) MDV 11/25/2016 Influenza, Inactivated IIV3 (Age 65+ Years) Preserv Free 11/13/2023 Pneumococcal Poly,23-Valent (Pneumovax) 10/16/2005 Pneumococcal conj 13-Valent (Prevnar 13) 01/26/2015 RSV, Bivalent Vaccine Recons tituted (Abrysvo 120MCG/0.5mL) 01/11/2023 Td (Age >=7 Years) 06/18/2004 Tdap 07/10/2011 Zoster (Shingrix-RZV, recombinant) 03/23/2024, Family History Medical History Relation Name Comments Cancer Brother lung Hypertension Brother Other Brother lung cancer Cancer-breast Maternal Aunt Hypertension Mother Cancer-ovarian No Family History Relation Name Status Comments Brother Maternal Aunt Mother Social History Tobacco Use Types Packs/Day Years Used Date Smoking Tobacco: Never Smokeless Tobacco: Never Tobacco Cessation:Counseling Given: Yes Alcohol Use Standard Drinks/Week Comments No 0 (1 standard drink = 0.6 oz pur e alcohol) PHQ-2 Answer Date Recorded PHQ-2 TOTAL SCORE 0 12/16/2023 Social Connections Answer Date Recorded Do you often feel lonely or isolated from those around you? 0 12/16/2023 Financial Resource Strain Answer Date R ecorded Difficulty of Paying Living Expenses 3 12/16/2023 Difficulty of Paying Living Expenses Not on file 12/16/2023 Food Insecurity Answer Date Recorded Do you worry your food will run out before you are able to buy more? 1 12/16/2023 Transportation Needs Answer Date Record ed Does lack of transportation keep you from medica l appointments? 1 12/16/2023 Does lack of transportation keep you from work, meetings or getting things that you need? 1 12/16/2023 Housing Stability Answer Date Recorded What is your housing situation today? 1 12/16/2023 Interpersonal Safety Answer Date Record ed Are you being hit, kicked, p ushed or yelled at (see row info)? No 04/10/2023 Interpersonal Safety Abuse 12 - 18 Not on file 04/10/2023 Interpersonal Safety Ambulatory Vulnerability No t on file 04/10/2023 Utilities Answer Date Recorded Do you have trouble paying f or utilities (for example, heat, electricity, water, phone)? 1 12/16/2023 Comments No Sex and Gender Information Value Date Recorded Sex Assigned at Not on file Legal Sex Female 6:30 AM LOAN DOCUMENTATION SPECIALIST Gender Identity Not on file Sexual Orientation Not on file Obstetrics History Para Term AB IAB SAB Ectopic Multiple Livin g Live Births 5 5 1 6 Date Outcome GA Total Labor Labor/2nd/3rd Weight Sex Type Anes PTL Kristie A1 A5 Name Clin Para Para Para Para Para Last Filed Vital Signs Vital Sign Reading Time Taken Comments Blood Pressure 134/84 07/08/2024 2:50 PM CDT Man ual Pulse 70 07/08/2024 2:50 PM CDT Temperature 37.2 C (99 F) 10/05/2019 9:31 AM CDT Respiratory Rate 16 07/18/2020 11:02 AM CDT Oxygen Saturation 96% 07/08/2024 2:50 PM CDT Inhaled Oxygen Concentration - - Weight 68 kg (150 lb) 06/18/2024 12:39 PM CDT Height 153.7 cm (5' 0.5) 12/16/2023 1:20 PM LOAN DOCUMENTATION SPECIALIST Body Mass Index 28.81 12/16/2023 1:20 PM LOAN DOCUMENTATION SPECIALIST Plan of Treatment Upcoming Encounters Date Type Department Care Team (Late st Contact Info) Description 09/16/2024 10:30 AM CDT Orders Only [facility] [address] [place] [address] [place] 09/21/2024 1:00 PM CDT Office Visit [facility] [address] [place] [address] Serafin Meng MD [address] [place] [address] [place] [address] Health Maintenance Due Date Last Done Comments Medicare Wellness for age 65+ 12/17/2015 12/16/2014, 07/31/2012, 07/10/2011, Additional history exists Tetanus booster 07/09/2021 07/10/2011, 06/18/2004 COVID-19 vaccine series ( season) 2024 11/03/2023, 11/21/2022, 10/22/2021, Additional history exists Influenza Vaccine (#1) 2024 , 11/30/2019, 01/28/2019, Additional history exists BMI (ht and wt on same day) for age 18+ 12/15/2024 12/16/2023, 09/05/2022, 01/18/2022, Additional history exists Depression screening for age 12+ 12/16/2024 12/17/2023, 12/16/2023, 08/20/2022, Additional history exists Pneumococcal series for age 50+ Completed 01/26/2015, 10/16/2005 DEXA/DXA scan for age 65+ Completed 2021, 06/05/2010, 01/14/2008, Additional history exists RSV vaccine for adults or Completed 01/11/2023 Zoster (shingles) series for age 50+ Completed 03/23/2024, 12/31/2023 Hepatitis B series for 19+ Aged Out N o longer eligible based on patient's age to complete this topic Procedures Procedure Name Priority Date/Time Associated Diagnosis Comments INR,POCT Routine 09/02/2024 12:41 PM CDT Chronic atrial fibrillation (HC) Anticoagulation monitoring, INR range 2-3 INR,POCT Routine 08/05/2024 1:25 PM CDT Chronic atrial fibrillation (HC) Anticoagulation monitoring, INR range 2-3 INR,POCT Routine 07/22/2024 10:39 AM CDT Chronic atrial fibrillation (HC) Anticoagulation monitoring, INR range 2-3 CBC WITH AUTO DIFFERENTIAL Routine 06/25/2024 11:04 AM CDT Upper abdominal pain COMP METABOLIC PANEL Routine 06/25/2024 11:04 AM CDT Upper abdominal pain VITAMIN B12 Routine 06/25/2024 11:04 AM CDT B12 deficiency PROTIME-INR Routine 06/25/2024 11:01 AM CDT Chronic atrial fibrillation (HC) Anticoagulation monitoring, INR range 2-3 PROTIME-INR STAT 06/10/2024 11:42 AM CDT Chronic atrial fibrillation (HC) Anticoagulation monitoring, INR range 2-3 XR DXA BONE DENSITY 2 SITES AXIAL Routine 07/18/2021 1:28 PM CDT Current chronic use of systemic steroids from Last 3 Months or Most Recently Relevant to Health Maintenance Results * (ABNORMAL) INR - POCT [98000.2] - Standing Order (09/02/2024 12:41 PM CDT) Only the most recent of3 resultswithin the time period is included. INR 3.5(H) ratio [facility] Comment: INRs >2.9 may be falsely elevated in patients receiving either unfractionated Heparin or Low Molecular Weight Heparin. Follow up testing in a hospital laboratory may be helpful if clinically indicated. INR results of > or = 5.0 should be verified using the standard venipuncture procedure. Reference Range 0.9-1.1 Moderate-intensity Warfarin Therapy 2.0-3.0 Higher-intensity Warfarin Therapy 3.0-4.0 PROTHROMBIN TIMEP 41.8(H) 10.5 - 13.1 sec [facility] Comment: Point of care fingerstick Prothrombin Time/INR results may vary from venous Prothrombin Time/INR methodologies. Any results exhibiting inconsistency with the patient's clinical status should be repeated using a venous Prothrombin Time/INR method. Blood BLOOD SPECIMEN / Unknown 09/02/2024 12:41 PM CDT 09/02/2024 12:42 PM CDT us Leslie Pizano MD LABORATORY Final Result [facility] [address] [place] [address], [facility] [address] [place] [address] * (ABNORMAL) CBC AND DIFFERENTIAL (06/25/2024 11:04 AM CDT) Pathologist [facility] WHITE BLOOD CELL COUNT 9.1 3.8 - 10.8 Thousand/u L [facility] RED BLOOD CELL COUNT 4.18 3.80 - 5.10 Million/uL [facility] HEMOGLOBIN 11.1(L) 11.7 - 15.5 g/dL [facility] HEMATOCRIT 36.5 35.0 - 45.0 % [facility] MCV 87.3 80.0 - 100.0 fL [facility] MCH 26.6(L) 27.0 - 33.0 pg [facility] MCHC 30.4(L) 32.0 - 36.0 g/dL [facility] Comment: For adults, a slight decrease in the calculated MCHC value (in the range of 30 to 32 g/dL) is most likely not clinically significant; however, it should be interpreted with caution in correlation with other red cell parameters and the patient's clinical condition. RDW 14.4 11.0 - 15.0 % [facility] PLATELET COUNT 317 140 - 400 Thousand/u L [facility] MPV 9.7 7.5 - 12.5 fL [facility] ABSOLUTE NEUTROPHILS 6,434 1,500 - 7,800 cells/uL [facility] ABSOLUTE LYMPHOCYTES 2,020 850 - 3,900 cells/uL [facility] ABSOLUTE MONOCYTES 510 200 - 950 cells/uL [facility] ABSOLUTE EOSINOPHILS 109 15 - 500 cells/uL [facility] ABSOLUTE BASOPHILS 27 0 - 200 cells/uL [facility] NEUTROPHILS 70.7 % [facility] LYMPHOCYTES 22.2 % [facility] MONOCYTES 5.6 % [facility] EOSINOPHILS 1.2 % [facility] BASOPHILS 0.3 % [facility] Blood BLOOD SPECIMEN / Unknown 06/25/2024 11:04 AM CDT 06/25/2024 11:04 AM CDT Leslie Pizano MD HEMATOLOGY Final Result Performing Organization Address City/[facility] de Phone Number [facility] [address] [id number] [place] [address], [facility] [address] * VITAMIN B12 (06/25/2024 11:04 AM CDT) [facility] VITAMIN B12 314 200 - 1,100 pg/mL [facility] Comment: Please Note: Although the reference range for vitamin B12 is 200-1100 pg/mL, it has been reported that between 5 and 10% of patients with values between 200 and 400 pg/mL may experience neuropsychiatric and hematologic abnormalities due to occult B12 deficiency; less than 1% of patients with values above 400 pg/mL will have symptoms. Blood BLOOD SPECIMEN / Unknown 06/25/2024 11:04 AM CDT 06/25/2024 11:04 AM CDT Leslie Pizano MD CHEMISTRY Final Result [facility] [address] [place] [address], [facility] [address] [place] [address] * (ABNORMAL) COMP METABOLIC PANEL (06/25/2024 11:04 AM CDT) GLUCOSE 109(H) 65 - 99 mg/dL [facility] Comment: Fasting reference interval For someone without known diabetes, a glucose value between 100 and 125 mg/dL is consistent with prediabetes and should be confirmed with a follow-up test. UREA NITROGEN (BUN) 14 7 - 25 mg/dL [facility] CREATININE 0.95 0.60 - 0.95 mg/dL [facility] EGFR 59(L) > OR = 60 mL/min/1. 73m2 [facility] BUN/CREATININE RATIO SEE NOTE: 6 - 22 (calc) [facility] Comment: Not Reported: BUN and Creatinine are within reference range. SODIUM 140 135 - 146 mmol/L [facility] POTASSIUM 4.1 3.5 - 5.3 mmol/L [facility] CHLORIDE 105 98 - 110 mmol/L [facility] CARBON DIOXIDE 25 20 - 32 mmol/L [facility] CALCIUM 8.9 8.6 - 10.4 mg/dL [facility] PROTEIN, TOTAL 6.4 6.1 - 8.1 g/dL [facility] ALBUMIN 4.1 3.6 - 5.1 g/dL [facility] GLOBULIN 2.3 1.9 - 3.7 g/dL (calc) [facility] ALBUMIN/GLOBULIN RATIO 1.8 1.0 - 2.5 (calc) [facility] BILIRUBIN, TOTAL 0.7 0.2 - 1.2 mg/dL [facility] ALKALINE PHOSPHATASE 66 37 - 153 U/L [facility] AST 18 10 - 35 U/L [facility] ALT 14 6 - 29 U/L [facility] Blood BLOOD SPECIMEN / Unknown 06/25/2024 11:04 AM CDT 06/25/2024 11:04 AM CDT Leslie Pizano MD CHEMISTRY Final Result [facility] [address] [place] [address], [facility] [address] [place] [address] * (ABNORMAL) PROTIME-INR [12629.0] - Standing Order (06/25/2024 11:01 AM CDT) Only the most recent of2 resultswithin the time period is included. INR 2.1(H) <1.3 06/25/2024 3:33 PM CDT [facility] PROTIME 24.1(H) 10.6 - 12.4 sec 06/25/2024 3:33 PM CDT [facility] Blood BLOOD SPECIMEN / Unknown [facility] / Unknown 06/25/2024 11:01 AM CDT 06/25/2024 11:01 AM CDT Narrative [facility] - 06/25/2024 3:33 PM CDT Therapeutic Range 2.0-3.0 for most anticoagulated patients 2.5-3.5 or 4.0 for high risk patients The INR is only used for patients on stable oral anticoagulant therapy. It makes no significant contribution to the diagnosis or treatment of patients whose Protime is prolonged for other reasons. INR results are increased when heparin levels exceed 1.0 U/mL, which corresponds to an aPTT >125 seconds if the patient is on UFH. us Leslie Pizano MD HEMATOLOGY Final Result [facility] [address] [place] [address], * (ABNORMAL) XR DXA BONE DENSITY 2 SITES AXIAL (07/18/2021 1:28 PM CDT) Anatomical Region Laterality Modality Spine, HIPS, HIPL, HIPR Other Impressions 07/27/2021 4:19 PM CDT Osteoporosis. RECOMMENDATIONS: The National Osteoporosis Foundation recommends pharmacologic treatment for patients with T-scores of -2.5 or less, patients with prior history of fragility fractures, or patients with 10-year probability of greater than 3% at hips or greater than 20% of suffering major osteoporotic fractures. Recommend continued optimization of calcium and vitamin D intake through dietary means and/or supplementation and regular exercise. Consider pharmacologic therapy for osteoporosis. Follow-up bone density reading in 2 years if therapy initiated to assess therapeutic efficacy. Cheryl Landis PA-C [facility] 07/27/2021 Narrative 07/27/2021 4:19 PM CDT For Patients: Results are automatically released to your [facility] ([employer]) account once available, in compliance with federal regulations. This means that you may see your results before your provider has had a chance to review them. Please allow 2-3 business days for your provider to comment on the results. XR DXA Bone Mineral Density (BMD) EXAM LOCATION: [address] [address] PATIENT NAME: Janel Mendoza DATE OF : 1940 EXAM DATE: 07/18/2021 REQUESTING PROVIDER: Leslie Pizano MD GENDER AT : female HEIGHT: 5' 2.4 (02/23/2019) WEIGHT: 147 lb (05/12/2020) MENOPAUSAL STATUS: Postmenopausal RACE/ETHNICITY: White RISK FACTORS: Family History of Osteoporosis, Family History of Hip Fracture (parental), Steroid Medication (non-topical) and White Race CURRENT MEDICATION FOR BONE LOSS: NONE INDICATION: Current chronic use of systemic steroids COMPARISON DATE(S): 2010 DXA scans are compared to prior studies for a patient only when the two (or more) studies were performed on the same scanner. It is not possible to compare data generated on one scanner to data from another because there are not standards in DXA equipment. This applies even if the two scanners are made by the same floorleader. PROCEDURE: Dual-energy x-ray absorptiometry performed with routine technique. Reporting is completed in the form of a T-score. The T-score represents the standard deviation from peak bone mass based on young healthy adult. A Z-score is used for diagnosis in premenopausal women, and for men under the age of 50. FINDINGS: RESULT LUMBAR SPINE L1 - L2 BMD: 0.734 g/cm2 T-Score: - 3.6 Z-Score: - 1.8 Change from prior in 2011: Decrease 14.8%. RESULTS FEMUR Left femoral neck BMD: 0.538 g/cm2 T-Score: - 3.6 Z-Score: - 1.4 Change from prior in 2011: Decrease 27.6%. Right femoral neck BMD: 0.606 g/cm2 T-Score: - 3.1 Z-Score: - 0.9 Change from prior in 2011: Decrease 14.0%. Left hip BMD: 0.552 g/cm2 T-Score: - 3.6 Z-Score: - 1.5 Change from prior in 2010: Decrease 30.6%. Right hip BMD: 0.611 g/cm2 T-Score: - 3.1 Z-Score: - 1.1 Change from prior in 2010: Decrease 21.2%. WHO criteria: Normal: T-score at or above -1 SD Osteopenia: T-score between -1.1 and -2.4 SD Osteoporosis: T-score at or below -2.5 SD Leslie Pizano MD DEXA Final Result from Last 3 Months or Most Recently Relevant to Health Maintenance Insurance MEDICARE PART B HB ONLY MEDICARE PART A HB ONLY [facility] Attn: [place] [id number] MEDICA PRIME SOLUTION HB [employer] MEDICARE ADVANTAGE Advance Directives * Full Code (Latest Code Status on File) Date Activated Date Inactivated Comments 04/09/2013 7:11 AM 04/09/2013 2:06 PM Care Teams Preconstruction Manager Relationship Specialty Start Date End Date Leslie Pizano MD [address] [place] [address] PCP - General Family Practice 10/30/16 Anna Lyn MD Dermatology 07/10/11 Balaji Marley MD [address] [facility] [address] [place] [address] Rheumatology Rheumatology 05/15/16
--- OUTSIDE RECORDS SUMMARY | 2024-09-10 17:37 | XMS_ITS | Clinical Summary ---
Author Organization [facility] Address [address] [place] [address] Care Team Providers Care Adjunct Faculty Instructor Name Role Phone Leslie Pizano Primary Care Provider [phone] Allergies Active Allergy Reactions Criticality Noted Date Comments Iodinated Contrast Media 06/27/2017 Medications calcium-vitamin D (CALTRATE 600+D) 600-400 MG-UNIT per tablet Take 1 tablet by mouth 2 times daily Active clobetasol (TEMOVATE) 0.05 % ointment Apply topically 2 times daily Active digoxin (LANOXIN) 125 MCG tablet Take 125 mcg by mouth daily Active levothyroxine (SYNTHROID/LEVOTHR OID) 75 MCG tablet Take 75 mcg by mouth daily 100 mcg daily Active predniSONE (AUDREY) 1 MG EC tablet Take 1 mg by mouth At Bedtime 2 tablets daily prn Active warfarin (COUMADIN) 4 MG tablet Take 4 mg by mouth daily Take as directed Active Multiple Vitamins-Minerals (PRESERVISION AREDS PO) Take 1 tablet by mouth daily Active OMEPRAZOLE PO Take 20 mg by mouth as needed Active carvedilol (COREG) 25 MG tabletIndications: Atrial fibrillation (H) Take 1 tablet (25 mg) by mouth 2 times daily (with meals) 180 tablet 3 02/27/19 Active losartan (COZAAR) 100 MG tabletIndications: Ischemic cardiomyopathy Take 1 tablet (100 mg) by mouth daily 90 tablet 1 02/27/19 19 Active Additional Information Patient taking differently: 50 mgOral DAILY, Reported on 04/17/2018 spironolactone (ALDACTONE) 25 MG tabletIndications: Other cardiomyopathy (H) Take 0.5 tablets (12.5 mg) by mouth daily 90 tablet 3 04/18/19 Active Active Problems No known active problems Immunizations Immunization Administration Dates Next Due COVID-19 MONOVALENT 12+ (Pfizer) 04/01/2020,02/12 Family History Relation Status Comments Mother Sister Alive Social History Tobacco Use Types Packs/Day Years Used Date Smoking Tobacco: Never Smokeless Tobacco: Never Adolescent Education Answer Date Record ed Getting School Help Needed Not on file 11/01 Comments Unknown Sex and Gender Information Value Date Recorded Sex Assigned at Not on file Legal Sex Female 10:50 AM CDT Gender Identity Not on file Sexual Orientation Not on file Last Filed Vital Signs Vital Sign Reading Time Taken Comments Blood Pressure 128/74 04/17/2018 3:19 PM LIME TRIMMER Pulse 72 04/17/2018 3:19 PM LIME TRIMMER Temperature - - Respiratory Rate - - Oxygen Saturation - - Inhaled Oxygen Concentration - - Weight 62.5 kg (137 lb 11.2 oz) 04/17/2018 3:19 PM LIME TRIMMER Height 158.8 cm (5' 2.5) 04/17/2018 3:19 PM LIME TRIMMER Body Mass Index 24.78 04/17/2018 3:19 PM LIME TRIMMER Plan of Treatment Health Maintenance Due Date Last Done Comments ADVANCE CARE PLANNING 1940 ANNUAL REVIEW OF HM ORDERS 1940 DEXA 1940 TSH W/FREE T4 REFLEX 1940 DTAP/TDAP/TD VACCINE (1 - Tdap) 04/18/1964 ZOSTER VACCINE (1 of 2) 04/18/1989 FALL RISK ASSESSMENT 04/18/2004 RSV VACCINE (1 - 1-dose 75+ series) 04/18/2014 COVID-19 VACCINE ( season) 2023 04/01/2020, 03/11/2020 PHQ-2 (once per calendar year) 2024 INFLUENZA VACCINE (#1) 2024 , 11/30/2019, 01/28/2019, Additional history exists PNEUMOCOCCAL VACCINE 50+ YEARS Completed 01/26/2015, 10/16/2005 HPV VACCINE (No Doses Required) Completed MENINGITIS VACCINE Aged Out No longer eligible based on patient's age to complete this topic Insurance MED[employer] PR[employer] SOLUTION MEDICARE Care Teams Adjunct Faculty Instructor Relationship Specialty Start Date End Date Leslie Pizano PCP - General Family Practice 11/15/16
[2024-09-10 17:45] VITALS: BP 168/101; PULSE 93; RESP 18; TEMP 36.3; O2SAT 96; BMI 27.0
--- NOTE | 2024-09-10 17:49 | ED.GENADULT ---
HPI - General Adult General Date Seen: 09/10/24 Chief complaint: Extremity Pain/Injury, Lower Stated complaint: L knee injury Time Seen by Provider: 09/10/24 17:46 History of Present Illness HPI narrative: 84 yo F with history of atrial fibrillation (warfarin, digoxin), polymyalgia rheumatica (prednisone), CHF, hypertension, hypothyroidism, right shoulder surgery, GERD. She presents to the ER today with left knee pain. 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 Her son, who is a PT, was working with her yesterday and today she is having increasing pain. She took Tylenol and has been icing her knee but is not helping. She had no she has a history of arthritis. Yesterday she was actually working with her son-in-law who is a physical therapist and trying to do some exercises for her knee. He was helping her flex and extend her knee and she was also doing some exercise on the exercise bike. She started having increasing pain last night and this morning had worse pain. Especially hurts when she tries to fully straighten out her knee. She feels like her knee is more swollen than normal. It is not been read. No warmth. No fever or chills. No other known injury. She is not having any pain in her hip, or ankle. She is on warfarin for AFib stroke prophylaxis. INR was supratherapeutic at her last check a few days ago INR was 3.6. She is due to check it again next week. She has not changed her warfarin dose. She was told to ?eat more green vegetables. ? Related Data Home Medications ?Medication ?Instructions ?Recorded ?Confirmed carvedilol 12.5 mg tablet 12.5 mg PO BID 11/02/21 01/29/23 digoxin 125 mcg (0.125 mg) tablet 125 mcg PO DAILY 11/02/21 01/29/23 cyanocobalamin (vitamin B-12) 250 250 mcg PO QDAY 11/05/21 01/29/23 mcg tablet (Vitamin B-12) losartan 25 mg tablet 25 mg PO DAILY 02/05/22 01/29/23 prednisone 5 mg tablet 5 mg PO DAILY 02/06/22 01/29/23 warfarin 4 mg tablet 4 - 6 mg PO DAILY 02/06/22 01/29/23 levothyroxine 88 mcg tablet 88 mcg PO DAILY 01/29/23 01/29/23 omeprazole 20 mg capsule,delayed 20 mg PO DAILY 01/29/23 01/29/23 release Allergies Allergy/AdvReac Type Severity Reaction Status Date / Time gadodiamide Allergy Verified 10/06/22 14:21 Contrast dye AdvReac Uncoded 10/06/22 14:21 HAZELNUTS AdvReac throat Uncoded 10/06/22 14:21 swelling PFSH PFS Medical History Bilateral lower extremity edema ?R60.0 - Localized edema (ICD-10) Heart failure with reduced ejection fraction ?I50.20 - Unspecified systolic (congestive) heart failure (ICD-10) Polymyalgia rheumatica ?M35.3 - Polymyalgia rheumatica (ICD-10) Gastritis with hemorrhage ?K29.71 - Gastritis, unspecified, with bleeding (ICD-10) Dysphagia ?R13.10 - Dysphagia, unspecified (ICD-10) Vitamin D deficiency ?E55.9 - Vitamin D deficiency, unspecified (ICD-10) Osteopenia ?M85.80 - Other specified disorders of bone density and structure, unspecified site (ICD-10) Swelling of face ?R22.0 - Localized swelling, mass and lump, head (ICD-10) Supratherapeutic international normalized ratio (INR) ?R79.1 - Abnormal coagulation profile (ICD-10) Sepsis ?A41.9 - Sepsis, unspecified organism (ICD-10) Otalgia ?H92.09 - Otalgia, unspecified ear (ICD-10) Muscle pain ?M79.10 - Myalgia, unspecified site (ICD-10) Left knee pain ?M25.562 - Pain in left knee (ICD-10) Herpes zoster ?B02.9 - Zoster without complications (ICD-10) Escherichia coli urinary tract infection ?N39.0 - Urinary tract infection, site not specified (ICD-10) ?B96.20 - Unspecified Escherichia coli [E. coli] as the cause of diseases classified elsewhere (ICD-10) Bacteremia due to Escherichia coli ?R78.81 - Bacteremia (ICD-10) ?B96.20 - Unspecified Escherichia coli [E. coli] as the cause of diseases classified elsewhere (ICD-10) Ovarian cyst ?N83.209 - Unspecified ovarian cyst, unspecified side (ICD-10) Coronary artery disease ?I25.10 - Atherosclerotic heart disease of [place] coronary artery without angina pectoris (ICD-10) Hypertension ?I10 - Essential (primary) hypertension (ICD-10) Arthritis ?M19.90 - Unspecified osteoarthritis, unspecified site (ICD-10) GERD (gastroesophageal reflux disease) ?K21.9 - Gastro-esophageal reflux disease without esophagitis (ICD-10) Atrial fibrillation ?I48.91 - Unspecified atrial fibrillation (ICD-10) Hypothyroid ?E03.9 - Hypothyroidism, unspecified (ICD-10) Surgical History Hx of colonoscopy ?Z98.890 - Other specified postprocedural states (ICD-10) 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) ?Z96.611 - Presence of right artificial shoulder joint (ICD-10) H/O: hysterectomy (~1974) ?Z90.710 - Acquired absence of both cervix and uterus (ICD-10) History of appendectomy (~1974) ?Z90.49 - Acquired absence of other specified parts of digestive tract (ICD-10) S/P ORIF (open reduction internal fixation) fracture (07/07/96) ?Z98.890 - Other specified postprocedural states (ICD-10) ?Z87.81 - Personal history of (healed) traumatic fracture (ICD-10) S/P foot surgery, right (09/30/12) ?Z98.890 - Other specified postprocedural states (ICD-10) Family History Mother High blood pressure Sister Atrial fibrillation High blood pressure Brother Lung cancer Social History (Reviewed 01/29/23 @ 13:37 by Abril Ma ~ [facility]) Narrative: Lives with son. Denies tobacco, EtOH, recreational drug use. DNR. Smoking Status: Never smoker Do you use any of these nicotine containing products: None Second hand tobacco smoke exposure: No How often do you have a drink containing alcohol: never AUDIT-C Alcohol total score: 0 Non-prescribed substance use: denies use Caffeine: Yes (coffee, 3 cups/day) service: No Exam Narrative: Exam Narrative: Constitutional: Appears well-developed and well-nourished. Active. Non-toxic appearing. Polite. HENT: Head: Atraumatic. No signs of injury. Nose: No nasal discharge. Mouth/Throat: Mucous membranes are moist. Pharynx is normal. Tonsils symmetric. Uvula midline. Airway patent. Eyes: Conjunctivae normal and EOM are normal. Pupils are equal, round, and reactive to light. Right eye exhibits no discharge. Left eye exhibits no discharge. No icterus. Neck: Normal range of motion. Neck supple. No adenopathy. No stridor. Cardiovascular: Normal rate and regular rhythm. Strong at PT pulses. No murmur heard. No murmurs, rubs, or gallops. Brisk capillary refill Pulmonary/Chest: Effort normal. No stridor. No respiratory distress. Musculoskeletal: Normal except for her left lower extremity. Healed right shoulder surgery with limited range of motion at her baseline. Left lower extremity: Hip is nontender. Quadriceps, femur, hamstring nontender. Knee: Does appear swollen but no redness or warmth. No definite ballotable or palpable effusion, but with the amount of swelling I think there probably is a joint effusion. No redness or warmth before the patella. She has mild diffuse tenderness, perhaps most prominent over the patella. She is keeping her knee flexed at about 90? sitting in her wheelchair and is having a lot of pain when she tries to extend her knee. She says it just bone straight now. It is not locked, it just hurts too much for her to extend. Gastroc, calf nontender and no palpable cord. No ankle tenderness. Foot nontender. Neurological: Alert. Normal strength. No cranial nerve deficit or sensory deficit. Coordination normal. GCS eye subscore is 4. GCS verbal subscore is 5. GCS motor subscore is 6. Skin: Skin is warm. No rash noted. Const: Vital Signs, click to edit/add: Vital Signs - 24 hr 09/10/24 17:45 Temperature 97.4 F L Pulse Rate [Pulse Oximeter] 93 Respiratory Rate 18 Blood Pressure [Ri ght Upper Arm] 168/101 H Pulse Oximetry 96 Oxygen Delivery Me thod Room Air Course Vital Signs Vital signs: Initial Vital Signs Temperature 97.4 F L 09/10/24 17:45 Temperature Source Temporal Artery Scan 09/10/24 17:45 Pulse Rate 93 09/10/24 17:45 Respiratory Rate 18 09/10/24 17:45 Blood Pressure 168/101 H 09/10/24 17:45 Blood Pressure Mean 123 H 09/10/24 17:45 Blood Pressure Position Sitting 09/10/24 17:45 Pulse Oximetry 96 09/10/24 17:45 Oxygen Delivery Method Room Air 09/10/24 17:45 Vital Signs Temperature 97.4 F L 09/10/24 17:45 Pulse Rate 93 09/10/24 17:45 Respiratory Rate 18 09/10/24 17:45 Blood Pressure 168/101 H 09/10/24 17:45 Pulse Oximetry 96 09/10/24 17:45 Oxygen Delivery Method Room Air 09/10/24 17:45 Temperature 97.4 F L 09/10/24 17:45 Pulse Rate 93 09/10/24 17:45 Respiratory Rate 18 09/10/24 17:45 Blood Pressure 168/101 H 09/10/24 17:45 Pulse Oximetry 96 09/10/24 17:45 Oxygen Delivery Method Room Air 09/10/24 17:45 Medications Administered Medications: Discontinued Medications Generic Name Dose Route Start Last Admin Trade Name Freq PRN Reason Stop Dose Admin Hydrocodone Bitart/Acetaminophen 1 tab 09/10/24 18:29 09/10/24 18:44 Hydrocodone-Acetamin 5-325 Mg 1 Tab PO 09/10/24 18:30 1 tab ONCE ONE Administration Medical Decision Making [facility] Narrative Medical decision making narrative: Pleasant 84-year-old female on warfarin for AFib stroke prophylaxis presenting to the ER today with acute onset of atraumatic left knee pain. Her left knee does hurt to a mild lower chronically because she know she has arthritis. She was doing more aggressive physical therapy with her son-in-law yesterday and since then her knee has been hurting a lot more and also developed swelling overnight. In terms of the swelling I suspect this is probably a joint effusion related to arthritis or possibly a hemarthrosis. She has no redness or warmth or fever to suggest a septic arthritis. X-rays of the knee are obtained and are negative for any acute fracture but do show evidence for a bone spur on her superior patella. Consider possible arthrocentesis to help relieve her effusion which might help her pain. However with supratherapeutic INR, we feel that the risks of bleeding would outweigh the benefits. Will treat her pain with Clio. Opiate precautions reviewed, in particular in light of her age. She is placed into a knee immobilizer because keeping her knee extended is more comfortable. She will follow-up with the [place] [facility] on Friday. Precautions for return to the ER reviewed. Labs show evidence that her INR is still supratherapeutic. Recommend that she hold her warfarin dose tonight and then resume her previously recommended doses. Recheck her INR on Friday or Friday with the INR clinic. Lab Data Labs: Lab Results 09/10/24 Range/Units 18:38 INR 3.85 H (0.91-1.10) Imaging Data XR L knee: Attestation: I have reviewed the pertinent imaging results. My impression: Arthritis. There is a bone spur on the superior patella that appears to have been fracture but may not be acute. No other acute fracture. Radiologist's impression: Impression: Moderate tricompartmental degenerative changes and suprapatellar joint effusion similar to remote prior exam without evidence of displaced fracture. Discharge Plan Discharge Clinical Impression: Acute pain of left knee Patient Disposition: Home, Self-Care Condition: Stable Instructions: Knee Pain (ED) Additional Instructions: Please come back to the ER right away if you have worsening pain, redness or warmth of your knee, fever, or any concerns. Please wear the knee immobilizer for comfort this weekend. You can take the knee immobilizer off when necessary. Use the pain killer as needed. This may cause drowsiness, dizziness. Try to use Tylenol 1st and use the pain killer only if needed for pain uncontrolled by Tylenol. Please follow-up with the [facility] on Friday. To schedule an ER follow-up appointment you can call [phone] Please hold your dose of warfarin tonight because your INR is too thin (3.85). You can resume your normal dose of warfarin tomorrow. Please follow-up with the INR clinic to have your INR rechecked on Friday or Friday. You could consider talking to your regular doctor about your anticoagulant. If you want, you could ask your doctor whether they think it is appropriate for you to change to other medications such as Xarelto or Eliquis or Pradaxa. Prescriptions: No Action digoxin 125 mcg (0.125 mg) tablet 125 mcg PO DAILY carvedilol 12.5 mg tablet 12.5 mg PO BID Rx Instructions: hold if sbp <105 or hr <65 cyanocobalamin (vitamin B-12) [Vitamin B-12] 250 mcg tablet 250 mcg PO QDAY levothyroxine 88 mcg tablet 88 mcg PO DAILY omeprazole 20 mg capsule,delayed release(DR/EC) 20 mg PO DAILY losartan 25 mg tablet 25 mg PO DAILY prednisone 5 mg tablet 5 mg PO DAILY warfarin 4 mg tablet 4 - 6 mg PO DAILY Rx Instructions: 4 MG REYNA,, 6 MG MO,WE,FR,SA Follow Up/Referrals: Leslie Pizano MD [Primary Care Provider, Family Practice] Stand Alone Forms: [employer] Info Instructions
--- NOTE | 2024-09-10 17:50 | CRLHL7_ITS ---
For Patients: As a result of the Cures Act, medical imaging exams and procedure reports are released immediately into your electronic medical record. You may view this report before your referring provider. If you have questions, please contact your health care provider. Indication: Knee pain Comparison: Three views left knee November 12, 2019 Technique: Standing AP, lateral, and sunrise views of the left knee were obtained Findings: No evidence of displaced fracture or dislocation. Persistent moderate degenerative changes of the tricompartmental joint space with chondrocalcinosis and marginal osteophyte formation. Persistent suprapatellar joint effusion. Impression: Moderate tricompartmental degenerative changes and suprapatellar joint effusion similar to remote prior exam without evidence of displaced fracture. Dictated by Sebas Shay MD @ 09/10/2024 6:46:09 PM (Electronically Signed)
[2024-09-10] MEDS: HYDROCODONE-ACETAMIN 5-325 MG 1 TAB PO (18:44)
[2024-09-10 19:01] LABS: INR 3.85 (0.91-1.10); Prothrombin Time 39.2 Seconds
== END 2024-09-10 20:12 | disposition home or self-care (01) ==
PROVIDERS: Emergency Provider Emergency Medicine; PCP Family Medicine
DX: M25.562 Pain in left knee (principal); Z79.01 Long term (current) use of anticoagulants
CPT/HCPCS: 36415; 73562; 85610; 99282; 99283; A9270

== ENCOUNTER 2024-10-29 13:23 | Outpatient (CLI) | payer MEDICARE, SELFPAY ==
--- NOTE | 2024-10-29 13:45 | MR_ITS ---
[address] [address] Phone:?[phone] Fax:?[phone] Referring Physician Information: Ryan Heck M.D. [id number] [facility] [address] Phone:?[phone] Fax:?[phone] Patient:Salud Mendoza D.O.B:?[id number] Sex:?Female Phone:?[phone] [facility] MRN:?[id number] Exam Date:?10/29/2024 EXAM: MRI of the LEFT KNEE without contrast CLINICAL: Left knee pain. COMPARISONS: X-rays dated 09/10/2024. TECHNICAL: Multiplanar multisequence MRI of the left knee was obtained. SEDATION: None. CONTRAST: None. FINDINGS: Ligaments: ACL: There is mucoid degeneration of the ACL without evidence of ligament disruption. PCL: Mild mucoid degeneration of the PCL, which otherwise appears intact. MCL: Intact and unremarkable. LCL: Intact and unremarkable. Posterolateral corner: There is increased soft tissue edema adjacent to the posterolateral corner structures. There is mild edema/strain involving the distal biceps femoris muscle. The popliteus tendon, distal biceps femoris tendon, distal iliotibial band, and the popliteofibular ligament appear intact. Posteromedial corner: Semimembranosus, pes anserine tendons and posterior oblique ligament appear intact. Extensor mechanism: Patellar tendon: Intact, without tendinopathy. Quadriceps tendon: Intact, without tendinopathy. Retinacula: Medial and lateral retinacula are intact. Fat pads: Unremarkable infrapatellar Hoffa's, quadriceps and prefemoral fat pads. Patellofemoral joint: Patella: There is full-thickness chondral loss involving the majority of the patella with mild subchondral marrow edema involving the inferior patella. Trochlea: There is full-thickness chondral loss involving the majority of the trochlea with minimal subchondral reactive edema. Medial compartment: Medial meniscus: There is complex tearing throughout the entire lateral meniscus. Approximately 5 mm of medial extrusion of the body segment into the medial gutter. Medial cartilage: There is full-thickness chondral loss involving the superior posterior nonweightbearing medial femoral condyle with adjacent subchondral cystic change. Grade 2 and 3 chondral loss involves the weightbearing medial femoral condyle with grade 2 chondral thinning involving the medial tibial plateau. Lateral compartment: Lateral meniscus: No evidence of discrete meniscal tear or meniscal displacement. Lateral cartilage: There is heterogeneity of the lateral tibial plateau cartilage. Mild chondral thinning involving the lateral femoral condyle. Knee joint: Effusion: Moderate sized partially visualized left knee effusion. Intra-articular bodies:?No convincing bodies identified. Popliteal cyst: None. Bones: There is mild reactive marrow edema involving the tibial and femoral attachment sites of the ACL. No evidence of acute fracture. There is scattered edema involving the subcutaneous soft tissues of the knee, nonspecific. Mild scattered edema involving the majority of the musculature about the knee is nonspecific. IMPRESSION: 1. Tearing throughout the medial meniscus with approximately 5 mm of medial extrusion of the body segment into the medial gutter. 2. Chondral loss involving the patellofemoral and medial compartments as above. 3. Mucoid degeneration of the ACL and there is also mild mucoid degeneration of the PCL. Ligamentous structures otherwise appear intact. 4. Moderate sized partially visualized joint effusion. 5. Scattered edema involving the subcutaneous soft tissues of the knee, nonspecific. JCZ Electronically signed on 10/29/2024 4:11:00 PM by Matt Hernandez D.O.
== END 2024-10-29 13:24 | disposition home or self-care (01) ==
LOC: MRI 13:26
PROVIDERS: PCP Family Medicine; Visit Provider Orthopaedic Surgery
DX: M25.562 Pain in left knee (principal); S83.242A Other tear of medial meniscus, current injury, left knee, initial encounter; M17.12 Unilateral primary osteoarthritis, left knee; M25.462 Effusion, left knee
CPT/HCPCS: 73721

== ENCOUNTER 2024-11-26 08:18 | Outpatient (CLI) | payer MEDICARE, SELFPAY ==
--- NOTE | 2024-11-26 09:42 | P.ANES_ITS ---
Anesthesia Charges Start Date/Time Anesthesia Start Date: 11/26/24 Anesthesia Start Time: 09:22 Stop Date/Time Anesthesia Stop Date: 11/26/24 Anesthesia Stop Time: 09:37 Summary Extremes of Age - Over 70 or under 1: ELECTRONIC ASSEMBLER Coding CPT Codes CPT Codes: ANES UPR GI NDSC PX NOS - 83460 ([id number]) P3 - PATIENT W/SEVERE SYS DISEASE, QZ - ELECTRONIC ASSEMBLER SVC W/O FLATWARE MAKER BY Additional Codes: Summary - Extremes of Age - Over 70 or under 1: ELECTRONIC ASSEMBLER ([id number])
--- NOTE | 2024-11-26 09:42 | W.ANESCHARGE ---
Anesthesia Charges Start Date/Time Anesthesia Start Date: 11/26/24 Anesthesia Start Time: 09:22 Stop Date/Time Anesthesia Stop Date: 11/26/24 Anesthesia Stop Time: 09:37 Summary Extremes of Age - Over 70 or under 1: ROLLER STITCHER Coding CPT Codes CPT Codes: ANES UPR GI NDSC PX NOS - 05290 ([id number]) P3 - PATIENT W/SEVERE SYS DISEASE, QZ - ROLLER STITCHER SVC W/O PHOTOGRAPHY COORDINATOR BY Additional Codes: Summary - Extremes of Age - Over 70 or under 1: ROLLER STITCHER ([id number])
== END 2024-11-26 08:19 | disposition home or self-care (01) ==
LOC: OP CLINIC 08:20
PROVIDERS: PCP Family Medicine; Visit Provider Internal Medicine Gastroenterology
DX: R10.13 Epigastric pain (principal); D50.9 Iron deficiency anemia, unspecified; K44.9 Diaphragmatic hernia without obstruction or gangrene
CPT/HCPCS: 00731; 43239; 88305; 88342; 99100; J2704; J3490